=== PATIENT | female | born 1960 | race Caucasian/White ===

== ENCOUNTER 2018-09-16 10:13 | Emergency (ER) | payer SELFPAY ==
[2018-09-16] MEDS ORDERED: CYCLOBENZAPRINE HCL 10 MG TABLET PO ONE (11:19)
--- NOTE | 2018-09-16 12:25 | RADIOLOGY REPORT (SQ) ---
EXAM DESCRIPTION: L SPINE 2 VIEWS COMPLETED DATE/TIME: 09/16/2018 12:10 pm REASON FOR STUDY: fell out of wheelchair COMPARISON: None. NUMBER OF VIEWS: Two views. TECHNIQUE: AP and lateral radiographic images acquired of the lumbar spine. LIMITATIONS: None. FINDINGS: MINERALIZATION: Normal. SEGMENTATION: Normal. No transitional anatomy. ALIGNMENT: Normal. VERTEBRAE: Maintained height. No fracture or worrisome bone lesion. DISCS: Preserved height. No significant osteophytes or end plate irregularity. POSTERIOR ELEMENTS: Pedicles and facets are intact. No pars defect or posterior arch defects. HARDWARE: None in the spine. PARASPINAL SOFT TISSUES: Normal. PELVIS: Intact as visualized. No fractures or worrisome bone lesions. SI joints intact. OTHER: Prior cholecystectomy. IMPRESSION: 1. No acute osseous findings. TECHNICAL DOCUMENTATION: JOB ID: [id number] [employer]- All Rights Reserved Reading location - IP/workstation name: [email or web address]
--- NOTE | 2018-09-16 12:28 | RADIOLOGY REPORT (SQ) ---
EXAM DESCRIPTION: KNEE BILATERAL 1-2 VIEWS COMPLETED DATE/TIME: 09/16/2018 12:10 pm REASON FOR STUDY: fell out of wheelchair COMPARISON: None. NUMBER OF VIEWS: Four views. TECHNIQUE: AP and lateral standing bilateral knees. LIMITATIONS: None. FINDINGS: MINERALIZATION: Normal. RIGHT KNEE BONES: No acute fracture. Enthesiophyte at the quadriceps tendon insertion. MEDIAL COMPARTMENT: Small marginal osteophytes. No joint space narrowing. No chondrocalcinosis. LATERAL COMPARTMENT: No significant osteophytes. No joint space narrowing. No chondrocalcinosis. PATELLOFEMORAL COMPARTMENT: No significant osteophytes. No joint space narrowing. No chondrocalc inosis. LEFT KNEE BONES: No acute fracture. Enthesiophyte at the quadriceps tendon insertion. MEDIAL COMPARTMENT: No significant osteophytes. No joint space narrowing. No chondrocalcinosis. LATERAL COMPARTMENT: No significant osteophytes. No joint space narrowing. No chondrocalcinosis. PATELLOFEMORAL COMPARTMENT: No significant osteophytes. No joint space narrowing. No chondrocalc inosis. IMPRESSION: 1. No acute osseous findings. 2. Slight degenerative changes medial compartment of the right knee. TECHNICAL DOCUMENTATION: JOB ID: [id number] [employer]- All Rights Reserved Reading location - IP/workstation name: [email or web address]
--- NOTE | 2018-09-16 12:50 | ER Document Report ---
HPI - HPI Time Seen by Provider: 09/16/18 10:59 Pain Level: 5 Notes: This is a 57-year-old female presenting to the emergency department with complaints of bilateral knee pain and low back pain. Patient [place] she was being pushed in a wheelchair and the wheelchair evidently had a bump and the person pushing the wheelchair continued going and she states she fell forward out of the wheelchair onto her bilateral knees. She states that at the time she was checked out by EMS and she felt that her injuries were not very severe however through the night she has been unable to sleep and now has worsening pain to her knees as well as the low back in the right lower paraspinous area. Patient denies any bowel incontinence, denies any urinary retention and denies any saddle anesthesia. Past Medical History - General Information source: Patient - Social History Smoking Status: Current Every Day Smoker Frequency of alcohol use: None Drug Abuse: None Family History: Reviewed & Not Pertinent Patient has suicidal ideation: No Patient has homicidal ideation: No - Medical History Medical History: Negative Renal/ Medical History: Denies: Hx Peritoneal Dialysis Surgical Hx: Negative - Immunizations Immunizations up to date: Yes Vertical Provider Document - CONSTITUTIONAL Notes: PHYSICAL EXAMINATION: GENERAL: Well-appearing, well-nourished and in no acute distress. HEAD: Atraumatic, normocephalic. EYES: Pupils equal round extraocular movements intact, conjunctiva are normal. ENT: Nares patent NECK: Normal range of motion LUNGS: No respiratory distress Musculoskeletal: Normal range of motion, tenderness to palpation to right lumbar paraspinous area. No vertebral tenderness, step-off or deformity. Tenderness to palpation to anterior bilateral knees, no crepitus on palpation. NEUROLOGICAL: Normal speech. PSYCH: Normal mood, normal affect. SKIN: Warm, Dry, normal turgor, no rashes or lesions noted. - INFECTION CONTROL TRAVEL OUTSIDE OF THE [place] IN LAST 30 DAYS: No Course - Re-evaluation Re-evalutation: X-rays were obtained of patient's bilateral knees and lumbar spine as patient did have a fall injury. All x-rays are negative for any acute findings. Patient will be given pain medication and muscle relaxer and discharged home. Patient encouraged to follow-up with either primary care or orthopedics of her pain continues, she just moved to the area so several recommendations were made to her as far as who she can call to follow-up with. Patient and daughter at bedside both verbalized understanding and agreement with plan. - Vital Signs Vital signs: Temp Pulse Resp BP Pulse Ox 97.9 F 72 16 132/70 H 93 09/16/18 10:21 09/16/18 10:21 09/16/18 10:21 09/16/18 10:21 09/16/18 10:21 Discharge - Discharge Clinical Impression: Fall with injury Qualifiers: Encounter type: initial encounter Qualified Code(s): W19.XXXA - Unspecified fall, initial encounter Condition: Stable Disposition: HOME, SELF-CARE Additional Instructions: The x-rays taken today of your knees and your lumbar spine were negative for any obvious injury. My recommendation is to take ibuprofen 600 mg every 6 hours. Use the muscle relaxer as prescribed. If you continue to have pain in these areas over the next 5 to 7 days please consider following up with either primary care provider or orthopedics. I have given you a recommendation for both. Prescriptions: Cyclobenzaprine HCl [Flexeril 10 mg Tablet] 10 mg PO TIDP PRN #15 tab PRN Reason: Referrals: CHARLES ACEVEDO DO [ACTIVE STAFF] - Follow up as needed TYRELL KRUGER MD [ACTIVE STAFF] - Follow up as needed
[2018-09-16 12:53] VITALS: BP 105/86
== END 2018-09-16 12:55 | disposition home or self-care (01) ==
LOC: ER 10:13
DX: T14.90XA Injury, unspecified, initial encounter (principal); M25.561 Pain in right knee; M25.562 Pain in left knee; M54.5 Low back pain; V00.811A Fall from moving wheelchair (powered), initial encounter; Y93.89 Activity, other specified; Y92.520 Airport as the place of occurrence of the external cause; F17.200 Nicotine dependence, unspecified, uncomplicated
CPT/HCPCS: 72100; 99283

== ENCOUNTER → 2018-12-27 | Outpatient (CLI) | payer OTHER ==
[2018-12-27 09:30] LABS: ABSOLUTE BASOPHILS # (AUTO) 0.1 10^3/uL (0.0-0.2); ABSOLUTE EOSINOPHILS # (AUTO) 0.4 10^3/uL (0.0-0.6); ABSOLUTE LYMPHOCYTES (AUTO) 1.4 10^3/uL (0.5-4.7); ABSOLUTE MONOCYTES (AUTO) 0.5 10^3/uL (0.1-1.4); EOSINOPHILS % (AUTO) 8.3 % (0-6); HEMOGLOBIN 13.7 g/dL (12.0-15.5); LYMPHOCYTES % (AUTO) 26.6 % (13-45); MEAN CORPUSCULAR HGB CONC 34.2 g/dL (32.0-36.0); MEAN CORPUSCULAR VOLUME 91 fl (80-97); MONOCYTES % (AUTO) 8.4 % (3-13); PLATELET COUNT 216 10^3/uL (150-450); RED BLOOD COUNT 4.42 10^6/uL (3.72-5.28); RED CELL DISTRIBUTION WIDTH 13.2 % (11.5-14.0); SEGMENTED NEUTROPHILS % (AUTO) 55.7 % (42-78); TOTAL CELLS COUNTED % (AUTO) 100 %; WHITE BLOOD COUNT 5.4 10^3/uL (4.0-10.5)
[2018-12-27 09:52] LABS: ALBUMIN 3.8 g/dL (3.5-5.0); ALKALINE PHOSPHATASE 85 U/L (38-126); ANION GAP 6 (5-19); ASPARTATE AMINO TRANSFERASE 17 U/L (14-36); BILIRUBIN,DIRECT 0.2 mg/dL (0.0-0.4); BILIRUBIN,TOTAL 0.3 mg/dL (0.2-1.3); BLOOD UREA NITROGEN 11 mg/dL (7-20); CALCIUM 8.5 mg/dL (8.4-10.2); CARBON DIOXIDE 33 mmol/L (22-30); CHLORIDE 103 mmol/L (98-107); CHOLESTEROL 157.93 mg/dL (0-200); GLUCOSE 93 mg/dL (75-110); POTASSIUM 3.6 mmol/L (3.6-5.0); TOTAL PROTEIN 6.2 g/dL (6.3-8.2); TRIGLYCERIDES 92 mg/dL (<150)
[2018-12-27 10:03] LABS: DIRECT LDL 115 mg/dL (<100)
== END ==
LOC: CCC 08:37
DX: J44.9 Chronic obstructive pulmonary disease, unspecified (principal)
CPT/HCPCS: 36415; 80053; 80061; 83036; 84443; 84550; 85025

== ENCOUNTER 2019-01-18 22:09 | Emergency (ER) | payer OTHER ==
[2019-01-18] MEDS ORDERED: METHYLPREDNISOLONE INJ 125 MG/2 ML SDV IV ONE (22:45)
[2019-01-18] MEDS ORDERED: IPRATROPIUM/ALBUTEROL 0.5-2.5 MG/3 ML AMPUL NEB ONE ×2 (22:45→22:57)
[2019-01-18] MEDS ORDERED: ALBUTEROL SULFATE 0.083% NEB 2.5 MG/3 ML AMPUL NEB ONE ×2 (22:45→23:57)
--- NOTE | 2019-01-18 22:48 | ER Document Report ---
ED Medical Screen (RME) - General Chief Complaint: Shortness Of Breath Stated Complaint: SHORTNESS OF BREATH Time Seen by Provider: 01/18/19 22:44 Primary Care Provider: HARLEEN VALLE [Primary Care Provider] - Follow up as needed Mode of Arrival: Ambulatory Information source: Patient Notes: 58-year-old female presented to ED for severe shortness of breath. She has a history of COPD and asthma. She states she just got off of prednisone from a previous flare. She is alert oriented difficulty breathing audible inspiratory and expiratory wheezes. She is very short of breath and still smokes a pack a day. She lives with her daughter who moved here from [place] to [facility] to live with her. I have greeted and performed a rapid initial assessment of this patient. A comprehensive ED assessment and evaluation of the patient, analysis of test results and completion of medical decision making process will be conducted by an additional ED providers. TRAVEL OUTSIDE OF THE [place] IN LAST 30 DAYS: No - Related Data Allergies/Adverse Reactions: aspirin Allergy (Verified 09/16/18 10:19) erythromycin base [From Erythrocin] Allergy (Verified 09/16/18 10:19) Penicillins Allergy (Verified 09/16/18 10:19) Past Medical History Renal/ Medical History: Denies: Hx Peritoneal Dialysis - Immunizations Immunizations up to date: Yes Physical Exam - Vital signs Vitals: Temp Pulse Resp BP Pulse Ox 98.7 F 102 H 22 H 149/81 H 97 01/18/19 22:14 01/18/19 22:14 01/18/19 22:14 01/18/19 22:14 01/18/19 22:14 Course - Vital Signs Vital signs: Temp Pulse Resp BP Pulse Ox 98.7 F 102 H 22 H 149/81 H 97 01/18/19 22:14 01/18/19 22:14 01/18/19 22:14 01/18/19 22:14 01/18/19 22:14 Doctor's Discharge - Discharge Referrals: HARLEEN VALLE [Primary Care Provider] - Follow up as needed
[2019-01-18] MEDS: MAGNESIUM SULFATE/D5W 1 GM/100 ML RTUPB IV SCH ×2 (23:05→23:15)
[2019-01-18 23:13] LABS: ABSOLUTE EOSINOPHILS # (AUTO) 0.4 10^3/uL (0.0-0.6); ABSOLUTE MONOCYTES (AUTO) 0.7 10^3/uL (0.1-1.4); ABSOLUTE NEUT (AUTO) 5.9 10^3/uL (1.7-8.2); BASOPHILS % (AUTO) 0.3 % (0-2); EOSINOPHILS % (AUTO) 4.2 % (0-6); HEMATOCRIT 40.3 % (36.0-47.0); HEMOGLOBIN 13.9 g/dL (12.0-15.5); LYMPHOCYTES % (AUTO) 22.3 % (13-45); MEAN CORPUSCULAR HEMOGLOBIN 31.4 pg (27.0-33.4); MEAN CORPUSCULAR HGB CONC 34.4 g/dL (32.0-36.0); MEAN CORPUSCULAR VOLUME 91 fl (80-97); MONOCYTES % (AUTO) 8.1 % (3-13); PLATELET COUNT 186 10^3/uL (150-450); RED BLOOD COUNT 4.41 10^6/uL (3.72-5.28); RED CELL DISTRIBUTION WIDTH 13.3 % (11.5-14.0); SEGMENTED NEUTROPHILS % (AUTO) 65.1 % (42-78); TOTAL CELLS COUNTED % (AUTO) 100 %; WHITE BLOOD COUNT 9.1 10^3/uL (4.0-10.5)
[2019-01-18 23:17] LABS: VENOUS BLOOD BASE EXCESS 2.4 mmol/L; VENOUS BLOOD HCO3 28.5 mmol/L (20-32); VENOUS BLOOD PCO2 49.9 mmHg (35-63); VENOUS BLOOD PH 7.38 (7.30-7.42)
[2019-01-18 23:32] LABS: ALBUMIN 3.7 g/dL (3.5-5.0); ALKALINE PHOSPHATASE 86 U/L (38-126); ANION GAP 7 (5-19); ASPARTATE AMINO TRANSFERASE 18 U/L (14-36); BILIRUBIN,DIRECT 0.2 mg/dL (0.0-0.4); BILIRUBIN,TOTAL 0.3 mg/dL (0.2-1.3); BLOOD UREA NITROGEN 11 mg/dL (7-20); CALCIUM 8.7 mg/dL (8.4-10.2); CARBON DIOXIDE 29 mmol/L (22-30); CHLORIDE 104 mmol/L (98-107); GLUCOSE 121 mg/dL (75-110); POTASSIUM 3.5 mmol/L (3.6-5.0); TOTAL PROTEIN 6.2 g/dL (6.3-8.2)
--- NOTE | 2019-01-18 23:47 | RADIOLOGY REPORT (SQ) ---
CLINICAL HISTORY: #1 SYNCOPE COMPARISON: None. TECHNIQUE: XR CHEST 1 VIEW 01/18/2019 10:48 PM CDT FINDINGS: Cardiac silhouette is normal in size. Lungs are clear without consolidation, atelectasis, mass or edema. There is no pleural effusion. There is no pneumothorax. There are no acute osseous findings. IMPRESSION: Clear lungs.
[2019-01-18] MEDS ORDERED: RACEPINEPHRINE HCL 2.25% NEB 0.5 ML AMPUL NEB ONE ×2 (23:55→23:56)
[2019-01-19] MEDS ORDERED: ACETAMINOPHEN 325 MG TABLET PO ONE (00:43)
--- NOTE | 2019-01-19 01:09 | ER Document Report ---
ED General - General Chief Complaint: Shortness Of Breath Stated Complaint: SHORTNESS OF BREATH Time Seen by Provider: 01/18/19 22:44 Primary [facility] Provider: [facility] [Primary Care Provider] - Follow up in 3-5 days Mode of Arrival: Ambulatory Information source: Patient, [facility] Records Notes: 58-year female with asthma, COPD presents with complaint of shortness of breath, wheezing, cough that has been ongoing for 4 days with worsening today. Patient does continue to use tobacco. She denies any fever, chills, nausea, vomiting. TRAVEL OUTSIDE OF THE [place] IN LAST 30 DAYS: No - HPI Onset: Other Onset/Duration: Gradual, Persistent, Worse Quality of pain: No pain Severity: Moderate Associated symptoms: Productive cough, Shortness of breath. denies: Chest pain, Fever, Nausea, Vomiting, Sweating Exacerbated by: Movement, Coughing Relieved by: Denies Similar symptoms previously: Yes Recently seen / treated by doctor: No - Related Data Allergies/Adverse Reactions: aspirin Allergy (Verified 09/16/18 10:19) erythromycin base [From Erythrocin] Allergy (Verified 09/16/18 10:19) Penicillins Allergy (Verified 09/16/18 10:19) Past Medical History - General Information source: Patient - Social History Smoking Status: Current Every Day Smoker Cigarette use (# per day): Yes - 5 Smoking Education Provided: Yes - Smoking cessation counseling was provided for 4 minutes at the bedside Frequency of alcohol use: None Drug Abuse: None Lives with: Family Family History: Reviewed & Not Pertinent Patient has suicidal ideation: No Patient has homicidal ideation: No Pulmonary Medical History: Reports: Hx Asthma, Hx COPD Renal/ Medical History: Denies: Hx Peritoneal Dialysis - Immunizations Immunizations up to date: Yes Review of Systems - Review of Systems Notes: REVIEW OF SYSTEMS: CONSTITUTIONAL : Denies fever, chills, or sweats. Denies recent illness. Denies weight loss, recent hospitalizations. EENT: Denies visual changes, eye pain. Denies sore throat, oral lesions, difficulty swallowing. CARDIOVASCULAR: Denies chest pain. Denies palpitations. Denies lower extremity edema. RESPIRATORY: + cough. + shortness of breath, wheezing. GASTROINTESTINAL: Denies abdominal pain or distention. Denies nausea, vomiting, or diarrhea. Denies blood in vomitus, stools, or per rectum. Denies black, tarry stools. Denies constipation. GENITOURINARY: Denies difficulty urinating, painful urination, frequency, blood in urine, or vaginal discharge. MUSCULOSKELETAL: Denies back or neck pain or stiffness. Denies joint pain or swelling. SKIN: Denies rash, lesions or sores. HEMATOLOGIC : Denies easy bruising or bleeding. LYMPHATIC: Denies swollen glands. NEUROLOGICAL: Denies confusion or altered mental status. Denies loss of consciousness. Denies dizziness or lightheadedness. Denies headache. Denies weakness or paralysis. Denies problems difficulty with ambulation, slurred speech. Denies sensory loss, numbness, or tingling. Denies seizures. PSYCHIATRIC: Denies anxiety or stress. Denies depression, suicidal ideation, or homicidal ideation. Denies visual or auditory hallucinations. Physical Exam - Vital signs Vitals: Temp Pulse Resp BP Pulse Ox 98.7 F 102 H 22 H 149/81 H 97 01/18/19 22:14 01/18/19 22:14 01/18/19 22:14 01/18/19 22:14 01/18/19 22:14 - Notes Notes: PHYSICAL EXAMINATION: GENERAL: Well-appearing, well-nourished and in no acute distress. HEAD: Atraumatic, normocephalic. EYES: Pupils equal round and reactive to light, extraocular movements intact, conjunctiva are normal. ENT: Nares patent, oropharynx clear without exudates. Moist mucous membranes. NECK: Normal range of motion, supple without lymphadenopathy LUNGS: Tachypneic, increased work of breathing, expiratory wheezing throughout. HEART: Regular rate and rhythm without murmurs ABDOMEN: Soft, nontender, nondistended abdomen. No guarding, no rebound. No masses appreciated. Female : deferred Musculoskeletal: Normal range of motion, no pitting or edema. No cyanosis. NEUROLOGICAL: Cranial nerves grossly intact. Normal speech, normal gait. Normal sensory, motor exams PSYCH: Normal mood, normal affect. SKIN: Warm, Dry, normal turgor, no rashes or lesions noted. Course - Re-evaluation Re-evalutation: 01/19/19 01:07 Laboratory 01/18/19 01/18/19 01/18/19 22:55 22:55 22:55 WBC 9.1 RBC 4.41 Hgb 13.9 Hct 40.3 MCV 91 MCH 31.4 MCHC 34.4 RDW 13.3 Plt Count 186 Lymph % (Auto) 22.3 Runnels % (Auto) 8.1 Eos % (Auto) 4.2 Baso % (Auto) 0.3 Absolute Neuts (auto) 5.9 Absolute Lymphs (auto) 2.0 Absolute Monos (auto) 0.7 Absolute Eos (auto) 0.4 Absolute Basos (auto) 0.0 Seg Neutrophils % 65.1 VBG pH 7.38 VBG pCO2 49.9 VBG HCO3 28.5 VBG Base Excess 2.4 Sodium 140.3 Potassium 3.5 L Chloride 104 Carbon Dioxide 29 Anion Gap 7 BUN 11 Creatinine 0.70 Est GFR ( Amer) > 60 Est GFR (MDRD) Non-Af > 60 Glucose 121 H Calcium 8.7 Total Bilirubin 0.3 Direct Bilirubin 0.2 Neonat Total Bilirubin Not Reportable Neonat Direct Bilirubin Not Reportable Neonat Indirect Bili Not Reportable AST 18 ALT 14 Alkaline Phosphatase 86 Total Protein 6.2 L Albumin 3.7 Chest X-Ray 01/18/19 22:48 IMPRESSION: Clear lungs. Temp Pulse Resp BP Pulse Ox 98.7 F 98 15 98/67 L 98 01/18/19 22:14 01/18/19 23:27 01/18/19 23:59 01/18/19 23:01 01/18/19 23:59 ED Course History: 58-year-old female with continuous tobacco use, asthma, COPD presents with shortness of breath Patient evaluated. Vital signs were reviewed. Patient is thin normal limits Previous medical records and nursing notes reviewed. Patient does not appear toxic or dehydrated they are in no acuted distress Exam Findings: Diffuse expiratory wheezing Lab Findings: CBC is without leukocytosis or anemia. CMP shows no electrolte abnormalities and normal renal function. LFTs WNL. Venous blood gas within normal limits Patient Interventions/Monitor: DuoNeb, magnesium, BiPAP, racemic epinephrine, Valium, doxycycline. Smoking cessation counseling was provided for 4 minutes at the bedside Revaluation: Patient is resting comfortably. She reports improvement of her shortness of breath. Wheezing has improved. She was removed off of the BiPAP and maintain an O2 saturation of 96%. MDM: Patient presents with a mild exacerbation of their baseline COPD. Mild wheezing at time of presentation but vitals do not show significant hypoxemia or tachypnea. No retractions. Patient did clinically improve after receiving nebulizers, magnesium, racemic epi here in the emergency department. Chest x- ray without evidence of an acute pneumonia. Laboratories do not show acute kidney injury or significant leukocytosis. Patient able to ambulate without any respiratory distress. Based on patient's overall reassuring assessment, I believe they are stable for outpatient management with steroids and oral antibiotics. Patient has nebulizers at home. I do not suspect an acute alternative pathology at this time based on history and exam including acute pulmonary embolus, ACS, pneumothorax, or aortic dissection. At this time will discharge with return precautions and follow-up recommendations. Verbal discharge instructions given a the bedside and opportunity for questions given. Medication warnings reviewed. Patient is in agreement with this plan and has verbalized understanding of return precautions and the need for primary care follow-up in the next 24-72 hours. Patient was evaluated and treated as appropriate for the patient's presenting symptoms and complaint, with consideration of any critical or life threatening conditions that may be associated with their obtained history and exam as noted above. All results were discussed with patient and her daughter who is at the [facility]. Patient provided the opportunity to ask questions, and express concerns. Patient was educated on treatments based on their presumed diagnosis as noted above. At this time we will discharge the patient with return precautions and follow-up recommendations. Verbal discharge instructions given a the bedside. Medication warnings reviewed. Patient is in agreement with this plan and has verbalized understanding of return precautions. After careful consideration I feel that that patient can be safely discharged from the emergency department, they were advised to followup with a primary care physician in 2-3 days. Dictation on this chart was performed using voice recognition software and may result in unintended grammatical, spelling, syntax or errors. 01/19/19 01:08 01/19/19 01:39 01/19/19 01:41 - Vital Signs Vital signs: Temp Pulse Resp BP Pulse Ox 98.7 F 98 13 149/79 H 97 01/18/19 22:14 01/18/19 23:27 01/19/19 01:01 01/19/19 01:01 01/19/19 01:01 - Laboratory Result Diagrams: 01/18/19 22:55 01/18/19 22:55 Laboratory results interpreted by me: 01/18/19 22:55 Potassium 3.5 L Glucose 121 H Total Protein 6.2 L - Diagnostic Test Radiology reviewed: Image reviewed, Reports reviewed Discharge - Discharge Clinical Impression: COPD exacerbation Asthma Qualifiers: Asthma severity: unspecified severity Asthma persistence: intermittent Asthma complication type: unspecified Qualified Code(s): J45.20 - Mild intermittent asthma, uncomplicated Condition: Good Disposition: HOME, SELF-CARE Instructions: Chronic Obstructive Lung Disease ([facility]) Additional Instructions: You were seen for a COPD exacerbation. Your symptoms improved with treatment here in the emergency department. However, it is very important that you return to the emergency department immediately if you began to have worsening difficulty breathing that does not respond to your normal home nebulizers. You are also being sent home on a five-day course of steroids that you should start taking tomorrow. Please also take the antibiotics as prescribed. Please also follow closely with your primary care physician. You should eturn to emergency department if you develop fever greater than 101, persistent cough, persistent vomiting, pass out, or any other symptoms that are concerning to you. Prescriptions: Prednisone [Deltasone 20 mg Tablet] 3 tab PO DAILY 5 Days #15 tablet Doxycycline Hyclate 100 mg PO BID 7 Days #14 capsule Forms: Smoking Cessation Education, Elevated Blood Pressure Referrals: [facility] [Primary Care Provider] - Follow up in 3-5 days
[2019-01-19] MEDS ORDERED: ALBUTEROL SULFATE HFA (90 MCG/PUFF) 8 GM MDI (1 MDI/ER DISP) IH PRN (01:34)
[2019-01-19] MEDS ORDERED: ALBUTEROL SULFATE 0.083% NEB 2.5 MG/3 ML AMPUL NEB ONE (01:35)
[2019-01-19] MEDS ORDERED: DIAZEPAM INJ 10 MG/2 ML DISP.SYRIN IV ONE (01:35)
[2019-01-19] MEDS ORDERED: DOXYCYCLINE HYCLATE 100 MG TABLET PO ONE (01:35)
[2019-01-19 01:57] VITALS: BP 142/72
== END 2019-01-19 01:45 | disposition home or self-care (01) ==
LOC: ER 22:09
DX: J44.1 Chronic obstructive pulmonary disease with (acute) exacerbation (principal); J45.20 Mild intermittent asthma, uncomplicated; R06.02 Shortness of breath; R05 Cough; F17.210 Nicotine dependence, cigarettes, uncomplicated; Z71.6 Tobacco abuse counseling; Z88.8 Allergy status to other drugs, medicaments and biological substances; Z88.1 Allergy status to other antibiotic agents; Z88.0 Allergy status to penicillin
CPT/HCPCS: 36415; 85025; 80053; 82803; 71045; 94660; J3360; J2930; J3475; J3490 ×2; J7620

== ENCOUNTER 2019-04-19 20:37 | Emergency (ER) | payer OTHER ==
[2019-04-19] MEDS ORDERED: ACETAMINOPHEN 325 MG TABLET PO ONE (20:47)
--- NOTE | 2019-04-19 20:47 | ER Document Report ---
ED Medical Screen (RME) - General Chief Complaint: Flank Pain Stated Complaint: FLANK PAIN Time Seen by Provider: 04/19/19 20:45 Primary Care Provider: HARLEEN VALLE [Primary Care Provider] - Follow up as needed Mode of Arrival: Ambulatory Information source: Patient Notes: 58-year-old female presents to ED for complaint of right flank pain x3 days. She states she was nauseated earlier today after she coughed. She does have COPD. He denies a history of kidney stones. She states she has had kidney infections before. She denies any blood in her urine. She states she does not have a gallbladder so we do not believe to be concerned about that. I have greeted and performed a rapid initial assessment of this patient. A comprehensive ED assessment and evaluation of the patient, analysis of test results and completion of medical decision making process will be conducted by an additional ED providers. TRAVEL OUTSIDE OF THE [place] IN LAST 30 DAYS: No - Related Data Allergies/Adverse Reactions: aspirin Allergy (Verified 09/16/18 10:19) erythromycin base [From Erythrocin] Allergy (Verified 09/16/18 10:19) Penicillins Allergy (Verified 09/16/18 10:19) Past Medical History Pulmonary Medical History: Reports: Hx Asthma, Hx COPD Renal/ Medical History: Denies: Hx Peritoneal Dialysis Past Surgical History: Reports: Hx Section, Hx Hysterectomy, Hx Orthopedic Surgery - Immunizations Immunizations up to date: Yes Physical Exam - Vital signs Vitals: Temp Pulse Resp BP Pulse Ox 98.4 F 93 20 142/71 H 94 04/19/19 20:41 04/19/19 20:41 04/19/19 20:41 04/19/19 20:41 04/19/19 20:41 Course - Vital Signs Vital signs: Temp Pulse Resp BP Pulse Ox 98.4 F 93 20 142/71 H 94 04/19/19 20:41 04/19/19 20:41 04/19/19 20:41 04/19/19 20:41 04/19/19 20:41 Doctor's Discharge - Discharge Referrals: HARLEEN VALLE [Primary Care Provider] - Follow up as needed
[2019-04-19 21:14] LABS: ABSOLUTE BASOPHILS # (AUTO) 0.1 10^3/uL (0.0-0.2); ABSOLUTE EOSINOPHILS # (AUTO) 0.4 10^3/uL (0.0-0.6); ABSOLUTE LYMPHOCYTES (AUTO) 1.6 10^3/uL (0.5-4.7); ABSOLUTE MONOCYTES (AUTO) 0.7 10^3/uL (0.1-1.4); ABSOLUTE NEUT (AUTO) 4.1 10^3/uL (1.7-8.2); BASOPHILS % (AUTO) 1.2 % (0-2); EOSINOPHILS % (AUTO) 6.5 % (0-6); HEMATOCRIT 41.3 % (36.0-47.0); HEMOGLOBIN 14.3 g/dL (12.0-15.5); LYMPHOCYTES % (AUTO) 23.5 % (13-45); MEAN CORPUSCULAR HGB CONC 34.6 g/dL (32.0-36.0); MEAN CORPUSCULAR VOLUME 93 fl (80-97); MONOCYTES % (AUTO) 9.5 % (3-13); PLATELET COUNT 246 10^3/uL (150-450); RED BLOOD COUNT 4.46 10^6/uL (3.72-5.28); SEGMENTED NEUTROPHILS % (AUTO) 59.3 % (42-78); TOTAL CELLS COUNTED % (AUTO) 100 %; WHITE BLOOD COUNT 6.9 10^3/uL (4.0-10.5)
[2019-04-19 21:31] LABS: ALBUMIN 3.8 g/dL (3.5-5.0); ALKALINE PHOSPHATASE 79 U/L (38-126); ANION GAP 6 (5-19); ASPARTATE AMINO TRANSFERASE 17 U/L (14-36); BILIRUBIN,DIRECT 0.1 mg/dL (0.0-0.4); BILIRUBIN,TOTAL 0.3 mg/dL (0.2-1.3); BLOOD UREA NITROGEN 11 mg/dL (7-20); CALCIUM 8.9 mg/dL (8.4-10.2); CARBON DIOXIDE 34 mmol/L (22-30); CHLORIDE 103 mmol/L (98-107); GLUCOSE 97 mg/dL (75-110); POTASSIUM 3.7 mmol/L (3.6-5.0); TOTAL PROTEIN 6.5 g/dL (6.3-8.2)
[2019-04-19] MEDS ORDERED: OXYCODONE HCL IR 5 MG TABLET PO ONE (22:01)
--- NOTE | 2019-04-19 22:03 | ER Document Report ---
ED General - General Chief Complaint: Flank Pain Stated Complaint: FLANK PAIN Time Seen by Provider: 04/19/19 20:45 Primary Care Provider: [facility] [Primary Care Provider] - Follow up in 3-5 days Mode of Arrival: Ambulatory Notes: Patient is a 58-year-old female that comes to the emergency department for chief complaint of right flank pain. She states this started 3 days ago and has worsened, now she has a lot of discomfort from the pain. She denies injury, pain does wrap around her side towards the belly but she denies abdominal pain. She denies dysuria or hematuria. She denies focal numbness or weakness, pain radiating down her leg, incontinence. She denies history of kidney stones. She denies fever/chills, nausea, she states she had a coughing episode where she vomited a little bit but she denies vomiting otherwise. She states her cough is her standard cough with her COPD. She has had a hysterectomy, cholecystectomy. TRAVEL OUTSIDE OF THE [place] IN LAST 30 DAYS: No - Related Data Allergies/Adverse Reactions: aspirin Allergy (Verified 04/19/19 22:21) erythromycin base [From Erythrocin] Allergy (Verified 04/19/19 22:21) Penicillins Allergy (Verified 04/19/19 22:21) Home Medications: Zoila Neb. Agustin ANAND. Noam ANAND Past Medical History - General Information source: Patient - Social History Smoking Status: Current Every Day Smoker Smoking Education Provided: Yes - <3 min Frequency of alcohol use: None Drug Abuse: None Lives with: Family Family History: Reviewed & Not Pertinent Patient has suicidal ideation: No Patient has homicidal ideation: No Pulmonary Medical History: Reports: Hx Asthma, Hx COPD Renal/ Medical History: Denies: Hx Peritoneal Dialysis Past Surgical History: Reports: Hx Section, Hx Hysterectomy, Hx Orthopedic Surgery - Immunizations Immunizations up to date: Yes Review of Systems - Review of Systems Constitutional: No symptoms reported EENT: No symptoms reported Cardiovascular: No symptoms reported Respiratory: See HPI Gastrointestinal: No symptoms reported Genitourinary: See HPI Female Genitourinary: No symptoms reported Musculoskeletal: See HPI Skin: No symptoms reported Hematologic/Lymphatic: No symptoms reported Neurological/Psychological: No symptoms reported Physical Exam - Vital signs Vitals: Temp Pulse Resp BP Pulse Ox 98.4 F 93 20 142/71 H 94 04/19/19 20:41 04/19/19 20:41 04/19/19 20:41 04/19/19 20:41 04/19/19 20:41 - Notes Notes: GENERAL: Alert, interacts well. No acute distress. HEAD: Normocephalic, atraumatic. EYES: Pupils equal, round, and reactive to light. Extraocular movements intact. ENT: Oral mucosa moist, tongue midline. Oropharynx unremarkable. Airway patent. Mild sinus congestion. LUNGS: Scattered expiratory wheezes, no rales or rhonchi. No respiratory distress. Occasional congested cough. HEART: Regular rate and rhythm. No murmur ABDOMEN: Soft, non-tender. Non-distended. Bowel sounds present in all 4 quadrants. GENITOURINARY: Deferred EXTREMITIES: Moves all 4 extremities spontaneously. No edema, normal radial and dorsalis pedis pulses bilaterally. No cyanosis. BACK: There is pain with palpation over the right CVA and right paralumbar areas. Pain with range of motion of these areas as well. No cervical, thoraci c, lumbar midline tenderness. No saddle anesthesia, normal distal neurovascular exam. Moves all extremities in full range of motion. NEUROLOGICAL: Alert and oriented x3. Normal speech. Cranial nerves II through XII grossly intact. PSYCH: Normal affect, normal mood. SKIN: Warm, dry, normal turgor. No rashes or lesions noted. Course - Re-evaluation Re-evalutation: On my evaluation patient has some expiratory wheezes, however she is not tachypneic. She does have frequent coughing episodes. She has minimal congestion as well. She has pain with palpation over the right mid to lower back, possibly muscular, possibly kidney. Abdomen is nontender. Oxygen saturations 94%. Patient's main complaint is her flank pain. Ultrasound negative, no hydronephrosis, urinalysis unremarkable, CBC, chemistry nonspecific. Chest x-ray clear. Overall evaluation is most consistent with bronchitis, COPD exacerbation, and muscle spasm from the coughing. I did talk at length about the nodule on the chest x-ray given patient's smoking habit I emphasized how important it was to have this followed up, patient already has a CAT scan follow-up scheduled and a pulmonology consult planned. Daughter is very supportive and has arranged this for her. Patient will be treated for muscle spasm, COPD exacerbation, provided with medications for this. Patient significantly improved after treatments, has no respiratory distress, no current complaints other than pain with movement of the back. Discussed follow-up and return precautions. They state appreciation and agreement. Stable time of discharge. - Vital Signs Vital signs: Temp Pulse Resp BP Pulse Ox 98.2 F 92 19 142/74 H 91 L 04/20/19 00:32 04/20/19 00:32 04/20/19 00:32 04/20/19 00:32 04/20/19 00:32 - Laboratory Result Diagrams: 04/19/19 20:54 04/19/19 20:54 Laboratory results interpreted by me: 04/19/19 04/19/19 04/19/19 20:54 20:54 21:50 Eos % (Auto) 6.5 H Carbon Dioxide 34 H Urine Protein 30 H Urine Urobilinogen 2.0 H Discharge - Discharge Clinical Impression: Wheezing, Cough Lower back pain Qualifiers: Chronicity: acute Back pain laterality: right Sciatica presence: without sciatica Qualified Code(s): M54.5 - Low back pain Condition: Stable Disposition: HOME, SELF-CARE Additional Instructions: Your evaluation is most consistent with bronchitis, COPD exacerbation, and a muscle spasm in your back. Take prednisone as prescribed, albuterol as prescribed, and the muscle relaxant as prescribed. Apply heat to your lower back. Rest. Stay hydrated. Follow close with primary care for additional management, it is important that you follow-up with your plan to have a CAT scan performed, you have what appears to be a small nodule in your lung which needs to be assessed and managed. Return if you worsen including fever, worsening difficulty breathing, vomiting, or any other concerning or worsening symptoms. Prescriptions: Prednisone [Deltasone 20 mg Tablet] 3 tab PO DAILY 5 Days #15 tablet Cyclobenzaprine HCl [Flexeril 5 mg Tablet] 1 - 2 tab PO TID PRN #20 tablet PRN Reason: Albuterol Sulfate [Proair HFA Inhalation Aerosol 8.5 gm MDI] 2 puff IH Q4H PRN #1 mdi PRN Reason: Referrals: [facility] [Primary Care Provider] - Follow up in 3-5 days
[2019-04-19 22:10] LABS: APPEARANCE,URINE CLOUDY; BILIRUBIN,URINE NEGATIVE (NEGATIVE); COLOR,URINE YELLOW; GLUCOSE, URINE NEGATIVE (NEGATIVE); KETONES,URINE NEGATIVE (NEGATIVE); PROTEIN,URINE 30 mg/dL (NEGATIVE); URINE SPECIFIC GRAVITY 1.023
--- NOTE | 2019-04-19 22:12 | RADIOLOGY REPORT (SQ) ---
EXAM DESCRIPTION: US RETROPERITONEUM COMPLETED DATE/TME: 04/19/2019 20:47 CLINICAL HISTORY: 58 years, Female, right flank pain COMPARISON: None. TECHNIQUE: Axial 2-D grayscale images of the retroperitoneum were acquired. Doppler was utilized. LIMITATIONS: None. FINDINGS: Right kidney measures 10.6 x 3.5 x 5.5 cm in size. Left kidney measures 11.3 x 4.8 x 4.7 cm in size. Both kidneys appear normal in echogenicity. There is no evidence of hydronephrosis. The urinary bladder measures 3.1 x 1.5 x 6.0 cm in size for a total volume of 15 mL. The abdominal aorta and IVC were not well visualized. IMPRESSION: No sonographic abnormality. copyright 2010 [employer]- All Rights Reserved
[2019-04-19] MEDS ORDERED: METHYLPREDNISOLONE INJ 125 MG/2 ML SDV IM ONE (22:25)
[2019-04-19] MEDS ORDERED: IPRATROPIUM/ALBUTEROL 0.5-2.5 MG/3 ML AMPUL NEB ONE ×2 (22:25→23:46)
--- NOTE | 2019-04-19 23:22 | RADIOLOGY REPORT (SQ) ---
EXAM DESCRIPTION: XR CHEST 2 VIEWS COMPLETED DATE/TME: 04/19/2019 22:25 CLINICAL HISTORY: 58 years, Female, worsening cough COMPARISON: Prior study from 01/18/2019 NUMBER OF VIEWS: Two TECHNIQUE: Frontal and lateral radiographs of the chest were obtained LIMITATIONS: None. FINDINGS: Cardiac and mediastinal contours are stable. Suspect focal nodular opacity projects over the left posterior sixth rib. Lungs are otherwise clear. No pleural effusion or pneumothorax. IMPRESSION: No acute disease. Suspected focal nodular opacity projecting over the left posterior sixth rib. Correlate with nonemergent CT of the chest as this could indicate a pulmonary nodule. copyright 2010 [employer]- All Rights Reserved
[2019-04-20 00:32] VITALS: BP 142/74
[2019-04-20] MEDS ORDERED: ALBUTEROL SULFATE HFA (90 MCG/PUFF) 8 GM MDI (1 MDI/ER DISP) IH ONE (00:36)
[2019-04-20] MEDS ORDERED: CYCLOBENZAPRINE HCL 10 MG TABLET PO ONE (00:37)
== END 2019-04-20 00:53 | disposition home or self-care (01) ==
LOC: ER 20:37
DX: M54.5 Low back pain (principal); R06.2 Wheezing; R05 Cough; R10.9 Unspecified abdominal pain; J44.9 Chronic obstructive pulmonary disease, unspecified; F17.200 Nicotine dependence, unspecified, uncomplicated
CPT/HCPCS: 36415; 85025; 80053; 81001; 71046; 76770; J7620; J2930; J3490; 94640; 96372; 99284

== ENCOUNTER 2019-07-15 10:53 | Inpatient (IN) | payer OTHER ==
[2019-07-15] MEDS ORDERED: IPRATROPIUM/ALBUTEROL 0.5-2.5 MG/3 ML AMPUL NEB ONE (11:01)
[2019-07-15] MEDS ORDERED: METHYLPREDNISOLONE INJ 125 MG/2 ML SDV IM ONE (11:01)
--- NOTE | 2019-07-15 11:03 | ER Document Report ---
ED Medical Screen (RME) - General Chief Complaint: Fever Stated Complaint: FEVER,COUGH,CONGESTION Time Seen by Provider: 07/15/19 11:01 Primary Care Provider: HARLEEN VALLE [Primary Care Provider] - Follow up as needed Notes: 58-year-old female with history of COPD and asthma presents with difficulty breathing, fever, nonproductive cough for the past couple days. Wheezing noted without auscultation. Pt able to speak 2-3 word sentences. Pt has been using neb treatments at home without relief. Decreased breath sounds throughout. Dry cough noted. I have greeted and performed a rapid initial assessment of this patient. A comprehensive ED assessment and evaluation of the patient, analysis of test results and completion of the medical decision making process with be conducted by additional ED providers. TRAVEL OUTSIDE OF THE [place] IN LAST 30 DAYS: No - Related Data Allergies/Adverse Reactions: aspirin Allergy (Verified 04/19/19 22:21) erythromycin base [From Erythrocin] Allergy (Verified 04/19/19 22:21) Penicillins Allergy (Verified 04/19/19 22:21) Past Medical History Pulmonary Medical History: Reports: Hx Asthma, Hx COPD Renal/ Medical History: Denies: Hx Peritoneal Dialysis Past Surgical History: Reports: Hx Section, Hx Hysterectomy, Hx Orthopedic Surgery - Immunizations Immunizations up to date: Yes Doctor's Discharge - Discharge Referrals: HARLEEN VALLE [Primary Care Provider] - Follow up as needed
[2019-07-15 11:22] LABS: ABSOLUTE BASOPHILS # (AUTO) 0.1 10^3/uL (0.0-0.2); ABSOLUTE EOSINOPHILS # (AUTO) 0.1 10^3/uL (0.0-0.6); ABSOLUTE LYMPHOCYTES (AUTO) 0.6 10^3/uL (0.5-4.7); ABSOLUTE MONOCYTES (AUTO) 0.7 10^3/uL (0.1-1.4); ABSOLUTE NEUT (AUTO) 3.1 10^3/uL (1.7-8.2); BASOPHILS % (AUTO) 1.2 % (0-2); EOSINOPHILS % (AUTO) 2.5 % (0-6); HEMATOCRIT 42.2 % (36.0-47.0); HEMOGLOBIN 14.6 g/dL (12.0-15.5); LYMPHOCYTES % (AUTO) 13.5 % (13-45); MEAN CORPUSCULAR HEMOGLOBIN 31.1 pg (27.0-33.4); MEAN CORPUSCULAR HGB CONC 34.6 g/dL (32.0-36.0); MEAN CORPUSCULAR VOLUME 90 fl (80-97); MONOCYTES % (AUTO) 15.4 % (3-13); PLATELET COUNT 199 10^3/uL (150-450); RED BLOOD COUNT 4.69 10^6/uL (3.72-5.28); RED CELL DISTRIBUTION WIDTH 13.5 % (11.5-14.0); SEGMENTED NEUTROPHILS % (AUTO) 67.4 % (42-78); TOTAL CELLS COUNTED % (AUTO) 100 %; WHITE BLOOD COUNT 4.7 10^3/uL (4.0-10.5)
[2019-07-15 11:39] LABS: ALBUMIN 4.1 g/dL (3.5-5.0); ALKALINE PHOSPHATASE 95 U/L (38-126); ANION GAP 6 (5-19); ASPARTATE AMINO TRANSFERASE 21 U/L (14-36); BILIRUBIN,TOTAL 0.3 mg/dL (0.2-1.3); BLOOD UREA NITROGEN 13 mg/dL (7-20); CALCIUM 8.7 mg/dL (8.4-10.2); CARBON DIOXIDE 30 mmol/L (22-30); CHLORIDE 104 mmol/L (98-107); GLUCOSE 98 mg/dL (75-110); POTASSIUM 4.3 mmol/L (3.6-5.0); TOTAL PROTEIN 6.7 g/dL (6.3-8.2)
[2019-07-15] MEDS ORDERED: MAGNESIUM SULFATE/D5W 1 GM/100 ML RTUPB IV ONE ×2 (12:16)
[2019-07-15] MEDS ORDERED: ALBUTEROL SULFATE 0.083% NEB 2.5 MG/3 ML AMPUL NEB ONE (12:17)
--- NOTE | 2019-07-15 12:21 | ER Document Report ---
ED General - General Chief Complaint: Difficulty breathng Stated Complaint: FEVER,COUGH,CONGESTION Time Seen by Provider: 07/15/19 11:01 Primary Care Provider: [facility] [Primary Care Provider] - Follow up as needed TRAVEL OUTSIDE OF THE [place] IN LAST 30 DAYS: No - HPI Notes: Patient is a 58-year-old female with history of COPD and asthma who presents complaining of fever, body ache, wheezing, nonproductive cough that began 2 days ago. She is able to eat and drink without difficulty. She is urinating normally and having normal bowel movements. Patient has had flareups like this in the past with her COPD and asthma. She has been on BiPAP before. Denies any headache, neck pain, sore throat, chest pain, palpitations, syncope, abdominal pain, nausea/vomiting/diarrhea, urinary retention, dysuria, hematuria, or rash. - Related Data Allergies/Adverse Reactions: aspirin Allergy (Verified 07/15/19 11:15) erythromycin base [From Erythrocin] Allergy (Verified 07/15/19 11:15) Penicillins Allergy (Verified 07/15/19 11:15) Past Medical History - Social History Smoking Status: Unknown if Ever Smoked Family History: Reviewed & Not Pertinent Patient has suicidal ideation: No Patient has homicidal ideation: No Pulmonary Medical History: Reports: Hx Asthma, Hx COPD Renal/ Medical History: Denies: Hx Peritoneal Dialysis Past Surgical History: Reports: Hx Section, Hx Hysterectomy, Hx Orthopedic Surgery - Immunizations Immunizations up to date: Yes Review of Systems - Review of Systems -: Yes All other systems reviewed and negative Physical Exam - Vital signs Vitals: Temp Pulse Resp BP Pulse Ox 99.8 F 107 H 18 131/76 H 92 07/15/19 11:14 07/15/19 11:14 07/15/19 11:14 07/15/19 11:14 07/15/19 11:14 - Notes Notes: PHYSICAL EXAMINATION: GENERAL: Well-appearing, well-nourished and in no acute distress. HEAD: Atraumatic, normocephalic. EYES: Pupils equal round and reactive to light, extraocular movements intact, sclera anicteric, conjunctiva are normal. ENT: Nares patent and without discharge. oropharynx clear without exudates. No tonsilar hypertrophy or erythema. Moist mucous membranes. NECK: Normal range of motion, supple without lymphadenopathy LUNGS: Wheezing throughout. No retractions. HEART: Regular rate and rhythm without murmurs, rubs, gallops. ABDOMEN: Soft, nontender, nondistended abdomen. No guarding, no rebound. Normal bowel sounds present. No CVA tenderness bilaterally. Musculoskeletal: FROM to passive/active. Strength 5+/5. Morgan neg. No asymmetry to LE's. Extremities: No cyanosis, clubbing, or edema b/l. Peripheral pulses 2+. Capillary refill less than 3 seconds. NEUROLOGICAL: Normal speech, normal gait. PSYCH: Normal mood, normal affect. SKIN: Warm, Dry, normal turgor, no rashes or lesions noted. Course - Re-evaluation Re-evalutation: 07/15/19 12:20 Patient is an afebrile, well-hydrated, 58-year-old female who presents with an acute URI currently and probable COPD/asthma exacerbation. She is currently oxygenating at 90 to 91% on room air after having 3 DuoNeb treatments and Solu- Medrol IM. Patient does continue have wheezing throughout. I will give her another albuterol treatment and magnesium through her IV. Chest x-ray is currently pending. If she does not improve with this we will try BiPAP. I nfluenza test has been ordered. 07/15/19 12:54 Pt is currently receiving her Magnesium IV. Pt has finished 4 breathing treatments and been given solumedrol. Her lungs still sound very tight and wheezy. Bipap ordered. Pt still oxygenating even throughout breathing treatment 88-90% now. Once stabilized on Bipap we will consider admission. 07/15/19 13:20 Pt is doing well on Bipap and O2 is now 98%. We will monitor for a little while and see how she oxygenates and recheck lung sounds off of bipap prior to considering admission. 07/15/19 14:48 Pt continued to oxygenate around 90% on RA after bipap was stopped. Pt c/o continued sob and wheezing. Lungs still have wheezing b/l, mostly on expiration, and somewhat improved overall, but still sounds tight. Dr. Martin accepted pt for admit to [facility]. Bipap restarted. Pt in agreement. - Vital Signs Vital signs: Temp Pulse Resp BP Pulse Ox 99.8 F 107 H 11 L 120/61 96 07/15/19 11:14 07/15/19 11:14 07/15/19 12:54 07/15/19 13:31 07/15/19 13:31 - Laboratory Result Diagrams: 07/15/19 11:06 07/15/19 11:06 Laboratory results interpreted by me: 07/15/19 11:06 Rooks % (Auto) 15.4 H Discharge - Discharge Clinical Impression: COPD exacerbation Condition: Stable Disposition: ADMITTED INPATIENT Admitting Provider: Mario (Hospitalist) Unit Admitted: [facility] Referrals: [facility] [Primary Care Provider] - Follow up as needed
--- NOTE | 2019-07-15 12:27 | RADIOLOGY REPORT (SQ) ---
EXAM DESCRIPTION: CHEST 2 VIEWS COMPLETED DATE/TIME: 07/15/2019 12:17 pm REASON FOR STUDY: cough, fever COMPARISON: 04/19/2019. EXAM PARAMETERS: NUMBER OF VIEWS: two views TECHNIQUE: Digital Frontal and Lateral radiographic views of the chest acquired. RADIATION DOSE: NA LIMITATIONS: none FINDINGS: LUNGS AND PLEURA: No opacities, masses or pneumothorax. No pleural effusion. MEDIASTINUM AND HILAR STRUCTURES: No masses or contour abnormalities. HEART AND VASCULAR STRUCTURES: Heart normal size. No evidence for failure. BONES: No acute findings. HARDWARE: None in the chest. OTHER: No other significant finding. IMPRESSION: NO ACUTE RADIOGRAPHIC FINDING IN THE CHEST. TECHNICAL DOCUMENTATION: JOB ID: [id number] 2010 [employer]- All Rights Reserved Reading location - IP/workstation name: [email or web address]
[2019-07-15 13:09] LABS: A TYPE INFLUENZA AG NEGATIVE (NEGATIVE)
[2019-07-15 13:10] LABS: B INFLUENZA AG NEGATIVE (NEGATIVE)
[2019-07-15 15:55] LABS: VENOUS BLOOD BASE EXCESS 1.5 mmol/L; VENOUS BLOOD HCO3 26.6 mmol/L (20-32); VENOUS BLOOD PCO2 43.8 mmHg (35-63); VENOUS BLOOD PH 7.4 (7.30-7.42)
[2019-07-15] MEDS ORDERED: ONDANSETRON 4 MG TAB.RAPDIS PO PRN (16:02)
[2019-07-15] MEDS ORDERED: MAGNESIUM HYDROXIDE SUSP 30 ML UDCUP PO PRN (16:02)
[2019-07-15] MEDS ORDERED: ZOLPIDEM TARTRATE 5 MG TABLET PO PRN (16:02)
--- NOTE | 2019-07-15 16:22 | PDOC H&P ---
History of Present Illness Admission Date/PCP: 07/15/19 15:07 [facility] Patient complains of: Progressive shortness of breath, generalized body aches and pain, nonproductive cough, for about 2 days History of Present Illness: RYAN PLASCENCIA is a 58 year old female Patient presents to the emergency room with complaint of difficulty breathing and shortness of breath accompanied by fever, body aches, and a dry nonproductive cough for about 2 days. She gives a history of a COPD and asthma. She continues to smoke. She denies any prior history of intubation. She was treated in the emergency room and attempts made to discharge her home however she remained bronchospastic and so she has been admitted for further evaluation and management There is no history of travel or exposure to any viral illness Past Medical History Pulmonary Medical History: Reports: Asthma, Chronic Obstructive Pulmonary Disease (COPD) Malignancy Medical History: Reports: None GI Medical History: Reports: None Past Surgical History Past Surgical History: Reports: Section, Hysterectomy, Orthopedic Surgery Social History Information Source: Patient Lives with: Family Smoking Status: Current Every Day Smoker Cigarettes Packs Per Day: 1 Frequency of Alcohol Use: Occasional Drugs: None - Advance Directive Resuscitation Status: Full Code Family History Family History: Reviewed & Not Pertinent Parental Family History Reviewed: Yes Children Family History Reviewed: Yes Sibling(s) Family History Reviewed.: Yes Medication/Allergy Home Medications: Albuterol Sulfate [Proventil Hfa] 2 puff IH PRN PRN 04/19/19 Ipratropium/Albuterol Sulfate [Duoneb 3 ml Ampul] 3 ml NEB RTQ4 04/19/19 Allergies/Adverse Reactions: aspirin Allergy (Verified 07/15/19 11:15) erythromycin base [From Erythrocin] Allergy (Verified 07/15/19 11:15) Penicillins Allergy (Verified 07/15/19 11:15) Review of Systems Constitutional: ABSENT: chills, fever(s), headache(s), weight gain, weight loss Eyes: ABSENT: visual disturbances Ears: ABSENT: hearing changes Cardiovascular: ABSENT: chest pain, dyspnea on exertion, edema, orthropnea, pa lpitations Respiratory: PRESENT: cough. ABSENT: hemoptysis Gastrointestinal: ABSENT: abdominal pain, constipation, diarrhea, hematemesis, hematochezia, nausea, vomiting Genitourinary: ABSENT: dysuria, hematuria Musculoskeletal: ABSENT: joint swelling Integumentary: ABSENT: rash, wounds Neurological: ABSENT: abnormal gait, abnormal speech, confusion, dizziness, focal weakness, syncope Psychiatric: ABSENT: anxiety, depression, homidical ideation, suicidal ideation Endocrine: ABSENT: cold intolerance, heat intolerance, polydipsia, polyuria Hematologic/Lymphatic: ABSENT: easy bleeding, easy bruising Physical Exam Vital Signs: Temp Pulse Resp BP Pulse Ox 99.8 F 107 H 11 L 120/61 96 07/15/19 11:14 07/15/19 11:14 07/15/19 12:54 07/15/19 13:31 07/15/19 13:31 Intake & Output 07/14/19 07/15/19 07/16/19 06:59 06:59 06:59 Intake Total 200 Balance 200 Weight 92.2 kg General appearance: PRESENT: no acute distress, well-developed, well-nourished Head exam: PRESENT: atraumatic, normocephalic Eye exam: PRESENT: conjunctiva pink, EOMI, PERRLA. ABSENT: scleral icterus Ear exam: PRESENT: normal external ear exam Mouth exam: PRESENT: moist, tongue midline Neck exam: ABSENT: carotid bruit, JVD, lymphadenopathy, thyromegaly Respiratory exam: PRESENT: rhonchi, unlabored, wheezes - Bilateral wheezing throughout both lung mcclure Cardiovascular exam: PRESENT: RRR. ABSENT: diastolic murmur, rubs, systolic murmur Pulses: PRESENT: normal dorsalis pedis pul Vascular exam: PRESENT: normal capillary refill GI/Abdominal exam: PRESENT: normal bowel sounds, soft. ABSENT: distended, guarding, mass, organolmegaly, rebound, tenderness Rectal exam: PRESENT: deferred Extremities exam: PRESENT: full ROM. ABSENT: calf tenderness, clubbing, pedal edema Neurological exam: PRESENT: alert, awake, oriented to person, oriented to place, oriented to time, oriented to situation, CN II-XII grossly intact. ABSENT: motor sensory deficit Psychiatric exam: PRESENT: appropriate affect, normal mood. ABSENT: homicidal ideation, suicidal ideation Skin exam: PRESENT: dry, intact, warm. ABSENT: cyanosis, rash Results Laboratory Results: 07/15/19 11:06 07/15/19 11:06 07/15/19 07/15/19 07/15/19 11:06 11:06 15:36 WBC 4.7 RBC 4.69 Hgb 14.6 Hct 42.2 MCV 90 MCH 31.1 MCHC 34.6 RDW 13.5 Plt Count 199 Seg Neutrophils % 67.4 VBG pH 7.40 VBG pCO2 43.8 VBG HCO3 26.6 VBG Base Excess 1.5 Sodium 139.5 Potassium 4.3 Chloride 104 Carbon Dioxide 30 Anion Gap 6 BUN 13 Creatinine 0.92 Est GFR ( Amer) > 60 Glucose 98 Calcium 8.7 Total Bilirubin 0.3 AST 21 Alkaline Phosphatase 95 Total Protein 6.7 Albumin 4.1 Impressions: Chest X-Ray 07/15/19 11:01 IMPRESSION: NO ACUTE RADIOGRAPHIC FINDING IN THE CHEST. Assessment and Plan - Diagnosis (1) Status asthmaticus with COPD (chronic obstructive pulmonary disease) Is this a current diagnosis for this admission?: Yes (2) Acute hypoxemic respiratory failure Is this a current diagnosis for this admission?: Yes Plan: Blood gas actually seems acceptable however she was hypoxic initially on presentation. Be placed on BiPAP along with oxygen support. - Plan Summary Summary: Patient remains bronchospastic despite receiving steroids, bronchodilators and magnesium in the emergency room. Patient will be admitted for further management. She will be monitored with further testing as indicated. Imaging studies revealed no acute infection and laboratory data is fairly normal - Time Time Spent with patient: 25-34 minutes Smoking Cessation Education: 3 to 10 minutes Medications reviewed and adjusted accordingly: Yes Anticipated discharge: Home Within: within 72 hours - Inpatient Certification Based on my medical assessment, after consideration of the patient's comorbidities, presenting symptoms, or acuity I expect that the services needed warrant INPATIENT care.: Yes Medical Necessity: Need Close Monitoring Due to Risk of Patient Decompensation, Risk of Complication if Not Cared For in Hospital
[2019-07-15] MEDS: IPRATROPIUM/ALBUTEROL 0.5-2.5 MG/3 ML AMPUL NEB PRN (17:36)
[2019-07-15] MEDS: METHYLPREDNISOLONE INJ 40 MG/1 ML SDV IV SCH ×2 (17:40→23:25)
[2019-07-15] MEDS ORDERED: INFLUENZA QUAD (6MOS+) 2019-20 VAC 0.5 ML SYR IM ONE (18:47)
[2019-07-15] MEDS: NICOTINE 14 MG/24 HR PATCH.TD24 TD SCH (19:36)
[2019-07-15] MEDS: ALPRAZOLAM 0.5 MG TABLET PO PRN (19:37)
[2019-07-15] MEDS: FAMOTIDINE 20 MG TABLET PO SCH (19:37)
[2019-07-15] MEDS: ALBUTEROL SULFATE 0.083% NEB 2.5 MG/3 ML AMPUL NEB SCH (20:21)
[2019-07-16] MEDS: ALBUTEROL SULFATE 0.083% NEB 2.5 MG/3 ML AMPUL NEB SCH ×7 (00:16→23:29)
[2019-07-16] MEDS: METHYLPREDNISOLONE INJ 40 MG/1 ML SDV IV SCH ×3 (05:22→21:16)
[2019-07-16] MEDS: NICOTINE 14 MG/24 HR PATCH.TD24 TD SCH (09:43)
[2019-07-16] MEDS: ALPRAZOLAM 0.5 MG TABLET PO PRN ×2 (09:43→21:16)
[2019-07-16] MEDS: DOCUSATE SODIUM 100 MG CAPSULE PO SCH (09:43)
[2019-07-16] MEDS: FAMOTIDINE 20 MG TABLET PO SCH ×2 (09:43→17:24)
[2019-07-16] MEDS: AZITHROMYCIN 250 MG TABLET PO SCH ×2 (09:43→09:50)
[2019-07-16] MEDS: ENOXAPARIN SODIUM INJ 40 MG/0.4 ML DISP.SYRIN SUBCUT SCH (09:43)
--- NOTE | 2019-07-16 10:40 | RADIOLOGY REPORT (SQ) ---
EXAM DESCRIPTION: CTA CHEST COMPLETED DATE/TIME: 07/16/2019 10:14 am REASON FOR STUDY: Tachypnea, bronchospasm COMPARISON: PA and lateral views of the chest from 07/15/2019. TECHNIQUE: CT scan of the chest performed using helical scanning technique with dynamic intravenous contrast injection. Images reviewed with lung, soft tissue and bone windows. Reconstructed coronal and sagittal MPR images reviewed. Additional 3 dimensional post-processing performed to develop Maximal Intensity Projection images ([place] P). All images stored on PACS. All CT scanners at this facility use dose modulation, iterative reconstruction, and/or weight based d osing when appropriate to reduce radiation dose to as low as reasonably achievable (ALARA). [facility]: Dose Right [facility]: CareDose [facility]: Dose Right [facility]: Teradose 4D [facility]: [employer] [facility] CONTRAST TYPE AND DOSE: Contrast/concentration: Isovue 350.00 mg/ml; Total Contrast Delivered: 61.0 ml; Total Saline Delivered: 80.0 ml Contrast bolus optimized for the pulmonary arteries. RENAL FUNCTION: GFR > 60. RADIATION DOSE: CT Rad equipment meets quality standard of care and radiation dose reduction techniq ues were employed. CTDIvol: 5.6 - 12.1 mGy. DLP: 458 mGy-cm. LIMITATIONS: None. FINDINGS: LUNGS AND PLEURA: There is mild centrilobular emphysema and bronchial wall thickening ; th ere is no associated bronchiectasis or segmental mucus plugging. There is a parenchymal band in the right upper lobe (image 27 of series 4) There are several noncalcified pulmonary nodules that range in size from 3 mm to 6 mm ; these include the 4 mm nodule in the left upper lobe (image 14 of series 4), the 3 mm nodule in the left upper lob e (image 20 of series 4), the 4 mm nodule in the lingula (image 37 of series 4), 6 mm nodule in the l eft lower lobe (image 39 of series 4), the 4 mm nodule in the right lower lobe (image 41 of series 4) , and the 6 mm nodule in the right lower lobe (43 of series 4). There is no acute consolidation, ground-glass opacification, pleural effusion or pneumothorax. AORTA AND GREAT VESSELS: There is a variant 2 vessel arch with a common origin of the brachiocephalic and left common carotid arteries. There is no thoracic aortic dissection. HEART: There is no pericardial effusion. The reflux of contrast into the IVC and hepatic veins is ty pical in the setting of right-sided cardiac dysfunction. There is no pericardial effusion. PULMONARY ARTERIES: There is no central or segmental pulmonary embolus. Evaluation of the subsegment al branches of the pulmonary arteries is limited due to respiratory motion. HILAR AND MEDIASTINAL STRUCTURES: No adenopathy or mass. HARDWARE: None in the chest. UPPER ABDOMEN: No acute findings. THYROID AND OTHER SOFT TISSUES: No adenopathy or mass. BONES: No acute findings. 3D MIPS: Confirm above findings. OTHER: No other finding. IMPRESSION: 1. No central or segmental pulmonary embolus. 2. Mild emphysema and bronchial wall thickening without a superimposed acute cardiopulmonary process . 2. Solid noncalcified nodules that measure up to 6 mm - consider a follow-up CT in 12 months. COMMENT: Quality ID # [id number]: Final reports with documentation of one or more dose reduction techniques (e.g., Automated exposure control, adjustment of the mA and/or kV according to patient size, use of iterative reconstruction technique) TECHNICAL DOCUMENTATION: JOB ID: [id number] 2010 [employer]- All Rights Reserved Reading location - IP/workstation name: [email or web address]
[2019-07-16] MEDS ORDERED: ALBUTEROL SULFATE HFA (90 MCG/PUFF) 8 GM MDI IH PRN (11:00)
[2019-07-16] MEDS: LEVOFLOXACIN 500 MG TABLET PO SCH (12:25)
[2019-07-16] MEDS: ACETAMINOPHEN 325 MG TABLET PO PRN (13:57)
[2019-07-16] MEDS: OXYCODONE-ACETAMINOPHEN 5-325 MG TABLET PO PRN ×2 (14:52→21:20)
[2019-07-16 16:35] LABS: ARTERIAL BLOOD BASE EXCESS 2.7 mmol/L; ARTERIAL BLOOD H2CO3 1.62 mmol/L (1.05-1.35); ARTERIAL BLOOD HCO3 29.4 mmol/L (20-24); ARTERIAL BLOOD O2 SATURATION 76.7 % (94-98); ARTERIAL BLOOD PCO2 53.9 mmHg (35-45); ARTERIAL BLOOD PH 7.36 (7.35-7.45); ARTERIAL BLOOD PO2 43.7 mmHg (80-100); ARTERIAL BLOOD TOTAL CO2 31.1 mmol/L (21-25)
[2019-07-16 16:36] LABS: ARTERIAL BLOOD FIO2 30%
[2019-07-17] MEDS: IPRATROPIUM/ALBUTEROL 0.5-2.5 MG/3 ML AMPUL NEB PRN ×2 (01:29→10:33)
[2019-07-17] MEDS: ALBUTEROL SULFATE 0.083% NEB 2.5 MG/3 ML AMPUL NEB SCH ×6 (04:13→23:50)
[2019-07-17] MEDS: METHYLPREDNISOLONE INJ 40 MG/1 ML SDV IV SCH ×2 (05:28→17:14)
[2019-07-17] MEDS: ACETAMINOPHEN 325 MG TABLET PO PRN ×2 (05:49→13:51)
--- NOTE | 2019-07-17 08:03 | PDOC PROGRESS REPORT ---
Subjective Progress Note for:: 07/16/19 Subjective:: Breathing improved Reason For Visit: COPD EXACERBATION Physical Exam Vital Signs: Temp Pulse Resp BP Pulse Ox 97.4 F 87 24 H 124/70 97 07/17/19 03:33 07/17/19 04:15 07/17/19 04:15 07/17/19 03:33 07/17/19 03:33 Intake & Output 07/16/19 07/17/19 07/18/19 06:59 06:59 06:59 Intake Total 320 2030 Output Total 1 Balance 319 2030 Weight 95.1 kg 93 kg General appearance: PRESENT: no acute distress, well-developed, well-nourished Head exam: PRESENT: atraumatic, normocephalic Eye exam: PRESENT: conjunctiva pink, EOMI, PERRLA. ABSENT: scleral icterus Ear exam: PRESENT: normal external ear exam Mouth exam: PRESENT: moist, tongue midline Neck exam: ABSENT: carotid bruit, JVD, lymphadenopathy, thyromegaly Respiratory exam: PRESENT: rhonchi - Bilateral expiratory wheezing, unlabored, wheezes. ABSENT: rales Cardiovascular exam: PRESENT: RRR. ABSENT: diastolic murmur, rubs, systolic murmur Pulses: PRESENT: normal dorsalis pedis pul Vascular exam: PRESENT: normal capillary refill GI/Abdominal exam: PRESENT: normal bowel sounds, soft. ABSENT: distended, guarding, mass, organolmegaly, rebound, tenderness Rectal exam: PRESENT: deferred Extremities exam: PRESENT: full ROM. ABSENT: calf tenderness, clubbing, pedal edema Neurological exam: PRESENT: alert, awake, oriented to person, oriented to place, oriented to time, oriented to situation, CN II-XII grossly intact. ABSENT: motor sensory deficit Psychiatric exam: PRESENT: appropriate affect, normal mood. ABSENT: homicidal ideation, suicidal ideation Skin exam: PRESENT: dry, intact, warm. ABSENT: cyanosis, rash Results Laboratory Results: 07/15/19 11:06 07/15/19 11:06 07/16/19 16:05 Carbonic Acid 1.62 H HCO3/H2CO3 Ratio 18:1 ABG pH 7.36 ABG pCO2 53.9 H ABG pO2 43.7 L ABG HCO3 29.4 H ABG O2 Saturation 76.7 L ABG Base Excess 2.7 FiO2 30% Impressions: Chest X-Ray 07/15/19 11:01 IMPRESSION: NO ACUTE RADIOGRAPHIC FINDING IN THE CHEST. Chest/Abdomen CTA 07/16/19 00:00 IMPRESSION: 1. No central or segmental pulmonary embolus. 2. Mild emphysema and bronchial wall thickening without a superimposed acute ca rdiopulmonary process. 2. Solid noncalcified nodules that measure up to 6 mm - consider a follow-up CT in 12 months. Assessment and Plan - Diagnosis (1) Status asthmaticus with COPD (chronic obstructive pulmonary disease) Is this a current diagnosis for this admission?: Yes Plan: Improved Continue Duoneb, steroids (2) Acute hypoxemic respiratory failure Is this a current diagnosis for this admission?: Yes Plan: Continue Respiratory support with oxygen - Plan Summary Summary: Remains bronchospastic with intermittent tachypnea and hypoxemia She still requires hospital management due to her respiratory status - Time Time Spent with patient: 25-34 minutes Medications reviewed and adjusted accordingly: Yes Anticipated discharge: Home Within: within 72 hours
[2019-07-17] MEDS: ALPRAZOLAM 0.5 MG TABLET PO PRN ×3 (09:16→22:33)
[2019-07-17] MEDS: FAMOTIDINE 20 MG TABLET PO SCH ×2 (09:16→17:12)
[2019-07-17] MEDS: NICOTINE 14 MG/24 HR PATCH.TD24 TD SCH (09:16)
[2019-07-17] MEDS: ENOXAPARIN SODIUM INJ 40 MG/0.4 ML DISP.SYRIN SUBCUT SCH (10:14)
[2019-07-17] MEDS: DOCUSATE SODIUM 100 MG CAPSULE PO SCH (10:14)
[2019-07-17] MEDS: OXYCODONE-ACETAMINOPHEN 5-325 MG TABLET PO PRN ×2 (10:49→22:31)
[2019-07-17] MEDS: LEVOFLOXACIN 500 MG TABLET PO SCH (12:04)
--- NOTE | 2019-07-17 13:13 | PDOC PROGRESS REPORT ---
Subjective Progress Note for:: 07/17/19 Subjective:: Breathing improved and much less wheezing today however patient states she had difficulty breathing during the night. It appears she was not receiving her bronchodilators as ordered Reason For Visit: COPD EXACERBATION Physical Exam Vital Signs: Temp Pulse Resp BP Pulse Ox 98.0 F 101 H 20 122/59 L 94 07/17/19 11:12 07/17/19 12:27 07/17/19 12:27 07/17/19 11:12 07/17/19 12:27 Intake & Output 07/16/19 07/17/19 07/18/19 06:59 06:59 06:59 Intake Total 320 2030 Output Total 1 Balance 319 2030 Weight 95.1 kg 93 kg General appearance: PRESENT: no acute distress, cooperative, well-nourished Head exam: PRESENT: atraumatic Neck exam: PRESENT: full ROM. ABSENT: JVD Respiratory exam: PRESENT: rhonchi, tachypnea, unlabored, wheezes. ABSENT: stridor Cardiovascular exam: PRESENT: RRR, +S1, +S2 GI/Abdominal exam: PRESENT: soft. ABSENT: tenderness Rectal exam: PRESENT: deferred Musculoskeletal exam: PRESENT: ambulatory Neurological exam: PRESENT: alert, awake, oriented to person, oriented to time, oriented to situation Psychiatric exam: PRESENT: appropriate affect Results Laboratory Results: 07/15/19 11:06 07/15/19 11:06 07/16/19 16:05 Carbonic Acid 1.62 H HCO3/H2CO3 Ratio 18:1 ABG pH 7.36 ABG pCO2 53.9 H ABG pO2 43.7 L ABG HCO3 29.4 H ABG O2 Saturation 76.7 L ABG Base Excess 2.7 FiO2 30% Impressions: Chest X-Ray 07/15/19 11:01 IMPRESSION: NO ACUTE RADIOGRAPHIC FINDING IN THE CHEST. Chest/Abdomen CTA 07/16/19 00:00 IMPRESSION: 1. No central or segmental pulmonary embolus. 2. Mild emphysema and bronchial wall thickening without a superimposed acute cardiopulmonary process. 2. Solid noncalcified nodules that measure up to 6 mm - consider a follow-up CT in 12 months. Assessment and Plan - Diagnosis (1) Status asthmaticus with COPD (chronic obstructive pulmonary disease) Is this a current diagnosis for this admission?: Yes Plan: Slowly improving. Continue with bronchodilators and steroids Patient still requires hospital management due to her bronchospasms (2) Acute hypoxemic respiratory failure Is this a current diagnosis for this admission?: Yes Plan: Continue Respiratory support with oxygen and wean off as tolerated (3) Tobacco abuse disorder Is this a current diagnosis for this admission?: Yes Plan: Patient counseled on the need to immediately stop smoking. She understands the association between her breathing and smoking. Extensive time spent with the patient regarding the need to abstain from smoking - Plan Summary Summary: Remains bronchospastic with intermittent tachypnea and hypoxemia She continues to requires hospital management due to her respiratory status
[2019-07-17] MEDS ORDERED: MAG HYDROX/AL HYDROX/SIMETH SUSP 30 ML UDCUP PO PRN (16:54)
[2019-07-18] MEDS: METHYLPREDNISOLONE INJ 40 MG/1 ML SDV IV SCH ×5 (00:44→23:33)
[2019-07-18] MEDS: ALBUTEROL SULFATE 0.083% NEB 2.5 MG/3 ML AMPUL NEB SCH ×6 (03:08→23:34)
[2019-07-18] MEDS: IPRATROPIUM/ALBUTEROL 0.5-2.5 MG/3 ML AMPUL NEB PRN (05:44)
[2019-07-18] MEDS: ACETAMINOPHEN 325 MG TABLET PO PRN (06:00)
[2019-07-18 06:25] LABS: ABSOLUTE LYMPHOCYTES (AUTO) 0.4 10^3/uL (0.5-4.7); ABSOLUTE MONOCYTES (AUTO) 0.6 10^3/uL (0.1-1.4); ABSOLUTE NEUT (AUTO) 5.6 10^3/uL (1.7-8.2); BASOPHILS % (AUTO) 0.1 % (0-2); EOSINOPHILS % (AUTO) 0.1 % (0-6); HEMATOCRIT 40.2 % (36.0-47.0); HEMOGLOBIN 13.6 g/dL (12.0-15.5); LYMPHOCYTES % (AUTO) 5.6 % (13-45); MEAN CORPUSCULAR HEMOGLOBIN 30.7 pg (27.0-33.4); MEAN CORPUSCULAR HGB CONC 33.7 g/dL (32.0-36.0); MEAN CORPUSCULAR VOLUME 91 fl (80-97); MONOCYTES % (AUTO) 8.7 % (3-13); PLATELET COUNT 170 10^3/uL (150-450); RED BLOOD COUNT 4.42 10^6/uL (3.72-5.28); RED CELL DISTRIBUTION WIDTH 13.6 % (11.5-14.0); SEGMENTED NEUTROPHILS % (AUTO) 85.5 % (42-78); TOTAL CELLS COUNTED % (AUTO) 100 %; WHITE BLOOD COUNT 6.5 10^3/uL (4.0-10.5)
[2019-07-18 06:38] LABS: ANION GAP 6 (5-19); BLOOD UREA NITROGEN 19 mg/dL (7-20); CALCIUM 8.6 mg/dL (8.4-10.2); CARBON DIOXIDE 33 mmol/L (22-30); CHLORIDE 101 mmol/L (98-107); GLUCOSE 116 mg/dL (75-110); POTASSIUM 5.3 mmol/L (3.6-5.0)
[2019-07-18] MEDS: NICOTINE 14 MG/24 HR PATCH.TD24 TD SCH (10:27)
[2019-07-18] MEDS: DOCUSATE SODIUM 100 MG CAPSULE PO SCH (10:27)
[2019-07-18] MEDS: ENOXAPARIN SODIUM INJ 40 MG/0.4 ML DISP.SYRIN SUBCUT SCH (10:28)
[2019-07-18] MEDS: FAMOTIDINE 20 MG TABLET PO SCH ×2 (10:28→17:17)
[2019-07-18] MEDS: ALPRAZOLAM 0.5 MG TABLET PO PRN ×2 (10:30→21:35)
[2019-07-18] MEDS: LEVOFLOXACIN 500 MG TABLET PO SCH (11:30)
--- NOTE | 2019-07-18 12:37 | PDOC PROGRESS REPORT ---
Subjective Progress Note for:: 07/18/19 Subjective:: Breathing improved and much less wheezing today however patient states she had difficulty breathing during the night. It appears she was not receiving her bronchodilators as ordered 3/ patient feels that her breathing is improved. She is breathing better. Denies any chest pain. She still very short of breath especially on ambulation Reason For Visit: COPD EXACERBATION Physical Exam Vital Signs: Temp Pulse Resp BP Pulse Ox 98.0 F 99 20 138/68 H 94 07/18/19 08:06 07/18/19 11:48 07/18/19 11:48 07/18/19 08:06 07/18/19 11:48 Intake & Output 07/17/19 07/18/19 07/19/19 06:59 06:59 06:59 Intake Total 2029 1900 Balance 2029 1900 Weight 93 kg 88.4 kg General appearance: PRESENT: no acute distress, well-developed, well-nourished Head exam: PRESENT: atraumatic, normocephalic Eye exam: PRESENT: conjunctiva pink, EOMI, PERRLA. ABSENT: scleral icterus Ear exam: PRESENT: normal external ear exam Mouth exam: PRESENT: moist, tongue midline Neck exam: ABSENT: carotid bruit, JVD, lymphadenopathy, thyromegaly Respiratory exam: PRESENT: unlabored, wheezes - few basal scattered wheezing. ABSENT: rales, rhonchi Cardiovascular exam: PRESENT: RRR. ABSENT: diastolic murmur, rubs, systolic murmur Pulses: PRESENT: normal dorsalis pedis pul Vascular exam: PRESENT: normal capillary refill GI/Abdominal exam: PRESENT: normal bowel sounds, soft. ABSENT: distended, guarding, mass, organolmegaly, rebound, tenderness Rectal exam: PRESENT: deferred Extremities exam: PRESENT: full ROM. ABSENT: calf tenderness, clubbing, pedal edema Neurological exam: PRESENT: alert, awake, oriented to person, oriented to place, oriented to time, oriented to situation, CN II-XII grossly intact. ABSENT: motor sensory deficit Psychiatric exam: PRESENT: appropriate affect, normal mood. ABSENT: homicidal ideation, suicidal ideation Skin exam: PRESENT: dry, intact, warm. ABSENT: cyanosis, rash Results Laboratory Results: 07/18/19 05:27 07/18/19 05:27 07/18/19 07/18/19 05:27 05:27 WBC 6.5 RBC 4.42 Hgb 13.6 Hct 40.2 MCV 91 MCH 30.7 MCHC 33.7 RDW 13.6 Plt Count 170 Seg Neutrophils % 85.5 H Sodium 140.4 Potassium 5.3 H Chloride 101 Carbon Dioxide 33 H Anion Gap 6 BUN 19 Creatinine 0.79 Est GFR ( Amer) > 60 Glucose 116 H Calcium 8.6 Impressions: Chest X-Ray 07/15/19 11:01 IMPRESSION: NO ACUTE RADIOGRAPHIC FINDING IN THE CHEST. Chest/Abdomen CTA 07/16/19 00:00 IMPRESSION: 1. No central or segmental pulmonary embolus. 2. Mild emphysema and bronchial wall thickening without a superimposed acute cardiopulmonary process. 2. Solid noncalcified nodules that measure up to 6 mm - consider a follow-up CT in 12 months. Assessment and Plan - Diagnosis (1) Status asthmaticus with COPD (chronic obstructive pulmonary disease) Is this a current diagnosis for this admission?: Yes Plan: Bronchospasm is much improved today. She has very few scattered wheezing at the time of my exam. (2) Acute hypoxemic respiratory failure Is this a current diagnosis for this admission?: Yes Plan: Still requiring oxygen support especially with ambulation. We will continue to taper as per her clinical response. (3) Tobacco abuse disorder Is this a current diagnosis for this admission?: Yes - Plan Summary Summary: Improved bronchospasm with intermittent tachypnea and hypoxemia She continues to requires hospital management due to her respiratory status - Inpatient Certification Based on my medical assessment, after consideration of the patient's comorbidities, presenting symptoms, or acuity I expect that the services needed warrant INPATIENT care.: Yes Medical Necessity: Need Close Monitoring Due to Risk of Patient Decompensation, Need for Nebulizer Therapy and Monitoring of Response
[2019-07-18] MEDS: OXYCODONE-ACETAMINOPHEN 5-325 MG TABLET PO PRN ×2 (15:09→21:34)
[2019-07-18] MEDS: FLUTICASONE/VILANTEROL 200-25 MCG/DOSE IH SCH (15:09)
[2019-07-18] MEDS ORDERED: FLUTICASONE PROPION IH SCH (22:00)
[2019-07-18] MEDS ORDERED: SALMETEROL IH SCH (22:00)
[2019-07-18] MEDS ORDERED: [UNRECOGNIZED DRUG - OTHER] IH SCH (22:00)
[2019-07-19] MEDS: ALBUTEROL SULFATE 0.083% NEB 2.5 MG/3 ML AMPUL NEB SCH ×5 (03:14→19:48)
[2019-07-19] MEDS: OXYCODONE-ACETAMINOPHEN 5-325 MG TABLET PO PRN ×2 (03:36→23:05)
[2019-07-19] MEDS: ALPRAZOLAM 0.5 MG TABLET PO PRN (03:37)
[2019-07-19] MEDS: METHYLPREDNISOLONE INJ 40 MG/1 ML SDV IV SCH ×3 (05:33→21:10)
[2019-07-19] MEDS: IPRATROPIUM/ALBUTEROL 0.5-2.5 MG/3 ML AMPUL NEB PRN (05:54)
[2019-07-19] MEDS: FAMOTIDINE 20 MG TABLET PO SCH ×2 (09:40→18:10)
[2019-07-19] MEDS: NICOTINE 14 MG/24 HR PATCH.TD24 TD SCH (09:40)
[2019-07-19] MEDS: DOCUSATE SODIUM 100 MG CAPSULE PO SCH (09:41)
[2019-07-19] MEDS: ENOXAPARIN SODIUM INJ 40 MG/0.4 ML DISP.SYRIN SUBCUT SCH (09:41)
[2019-07-19] MEDS: FLUTICASONE/VILANTEROL 200-25 MCG/DOSE IH SCH (09:41)
--- NOTE | 2019-07-19 11:44 | PDOC PROGRESS REPORT ---
Subjective Progress Note for:: 07/19/19 Subjective:: Breathing improved and much less wheezing today however patient states she had difficulty breathing during the night. It appears she was not receiving her bronchodilators as ordered 07/17 patient feels that her breathing is improved. She is breathing better. Denies any chest pain. She still very short of breath especially on ambulation 07/18 patient weeping off and on during the night and this morning, she is anxious about various things, still wheezing especially driven by anxiety Reason For Visit: COPD EXACERBATION Physical Exam Vital Signs: Temp Pulse Resp BP Pulse Ox 98.1 F 81 16 135/66 H 93 07/19/19 09:31 07/19/19 09:31 07/19/19 09:31 07/19/19 09:31 07/19/19 09:31 Intake & Output 07/18/19 07/19/19 07/20/19 06:59 06:59 07:59 Intake Total 1901 1612 Output Total 0 Balance 1901 1612 Weight 88.4 kg 96.6 kg General appearance: PRESENT: no acute distress, obese, well-developed, well-nourished Head exam: PRESENT: atraumatic, normocephalic Eye exam: PRESENT: conjunctiva pink, EOMI, PERRLA. ABSENT: scleral icterus Ear exam: PRESENT: normal external ear exam Mouth exam: PRESENT: moist, tongue midline Neck exam: ABSENT: carotid bruit, JVD, lymphadenopathy, thyromegaly Respiratory exam: PRESENT: rhonchi, unlabored, wheezes. ABSENT: rales Cardiovascular exam: PRESENT: RRR, +S1, +S2. ABSENT: diastolic murmur, rubs, systolic murmur Pulses: PRESENT: normal dorsalis pedis pul Vascular exam: PRESENT: normal capillary refill GI/Abdominal exam: PRESENT: normal bowel sounds, soft. ABSENT: distended, guarding, mass, organolmegaly, rebound, tenderness Rectal exam: PRESENT: deferred Extremities exam: PRESENT: full ROM. ABSENT: calf tenderness, clubbing, pedal edema Neurological exam: PRESENT: alert, awake, oriented to person, oriented to place, oriented to time, oriented to situation, CN II-XII grossly intact. ABSENT: motor sensory deficit Psychiatric exam: PRESENT: appropriate affect, normal mood. ABSENT: homicidal ideation, suicidal ideation Skin exam: PRESENT: dry, intact, warm. ABSENT: cyanosis, rash Results Laboratory Results: 07/18/19 05:27 07/18/19 05:27 Impressions: Chest X-Ray 07/15/19 11:01 IMPRESSION: NO ACUTE RADIOGRAPHIC FINDING IN THE CHEST. Chest/Abdomen CTA 07/16/19 00:00 IMPRESSION: 1. No central or segmental pulmonary embolus. 2. Mild emphysema and bronchial wall thickening without a superimposed acute cardiopulmonary process. 2. Solid noncalcified nodules that measure up to 6 mm - consider a follow-up CT in 12 months. Assessment and Plan - Diagnosis (1) Status asthmaticus with COPD (chronic obstructive pulmonary disease) Is this a current diagnosis for this admission?: Yes Plan: Bronchospasm is much improved today. She has very few scattered wheezing at the time of my exam. 07/18 Breathing improved but still bronchospastic driven by anxiety Still on Oxygen but will taper down as tolerated (2) Acute hypoxemic respiratory failure Is this a current diagnosis for this admission?: Yes Plan: Still requiring oxygen support especially with ambulation. We will continue to taper as per her clinical response. (3) Tobacco abuse disorder Is this a current diagnosis for this admission?: Yes Plan: Patient counseled on the need to immediately stop smoking. She understands the association between her breathing and smoking. Extensive time spent with the patient regarding the need to abstain from smoking (4) Anxiety and depression Is this a current diagnosis for this admission?: Yes Plan: Will start on Well butrin - Plan Summary Summary: 07/18 Improved bronchospasm with intermittent tachypnea and hypoxemia She continues to requires hospital management due to her respiratory status - Inpatient Certification Based on my medical assessment, after consideration of the patient's comorbid ities, presenting symptoms, or acuity I expect that the services needed warrant INPATIENT care.: Yes Medical Necessity: Need Close Monitoring Due to Risk of Patient Decompensation, Need for Nebulizer Therapy and Monitoring of Response
[2019-07-19] MEDS: BUPROPION HCL 75 MG TABLET PO SCH ×2 (13:27→21:10)
[2019-07-19] MEDS: LEVOFLOXACIN 500 MG TABLET PO SCH (13:27)
[2019-07-19] MEDS: CLONAZEPAM 1 MG TABLET PO SCH ×2 (13:27→21:10)
[2019-07-20] MEDS: ALBUTEROL SULFATE 0.083% NEB 2.5 MG/3 ML AMPUL NEB SCH ×6 (00:47→19:25)
[2019-07-20] MEDS: ACETAMINOPHEN 325 MG TABLET PO PRN (03:57)
[2019-07-20] MEDS: METHYLPREDNISOLONE INJ 40 MG/1 ML SDV IV SCH ×3 (06:00→21:13)
[2019-07-20 06:10] LABS: ABSOLUTE LYMPHOCYTES (AUTO) 0.6 10^3/uL (0.5-4.7); ABSOLUTE MONOCYTES (AUTO) 0.6 10^3/uL (0.1-1.4); ABSOLUTE NEUT (AUTO) 4.2 10^3/uL (1.7-8.2); BASOPHILS % (AUTO) 0.1 % (0-2); EOSINOPHILS % (AUTO) 0.1 % (0-6); HEMATOCRIT 38.7 % (36.0-47.0); HEMOGLOBIN 13.2 g/dL (12.0-15.5); LYMPHOCYTES % (AUTO) 11.7 % (13-45); MEAN CORPUSCULAR HEMOGLOBIN 30.8 pg (27.0-33.4); MEAN CORPUSCULAR VOLUME 90 fl (80-97); MONOCYTES % (AUTO) 11.3 % (3-13); PLATELET COUNT 168 10^3/uL (150-450); RED BLOOD COUNT 4.28 10^6/uL (3.72-5.28); RED CELL DISTRIBUTION WIDTH 13.7 % (11.5-14.0); SEGMENTED NEUTROPHILS % (AUTO) 76.8 % (42-78); TOTAL CELLS COUNTED % (AUTO) 100 %; WHITE BLOOD COUNT 5.5 10^3/uL (4.0-10.5)
[2019-07-20 06:36] LABS: ANION GAP 5 (5-19); BLOOD UREA NITROGEN 17 mg/dL (7-20); CALCIUM 8.3 mg/dL (8.4-10.2); CARBON DIOXIDE 34 mmol/L (22-30); CHLORIDE 100 mmol/L (98-107); GLUCOSE 152 mg/dL (75-110); POTASSIUM 4.5 mmol/L (3.6-5.0)
[2019-07-20] MEDS: BUPROPION HCL 75 MG TABLET PO SCH ×2 (09:46→21:13)
[2019-07-20] MEDS: DOCUSATE SODIUM 100 MG CAPSULE PO SCH (09:46)
[2019-07-20] MEDS: CLONAZEPAM 1 MG TABLET PO SCH ×2 (09:46→21:13)
[2019-07-20] MEDS: FLUTICASONE/VILANTEROL 200-25 MCG/DOSE IH SCH (09:46)
[2019-07-20] MEDS: NICOTINE 14 MG/24 HR PATCH.TD24 TD SCH (09:47)
[2019-07-20] MEDS: OXYCODONE-ACETAMINOPHEN 5-325 MG TABLET PO PRN ×2 (09:52→16:23)
[2019-07-20] MEDS: FAMOTIDINE 20 MG TABLET PO SCH ×2 (09:53→17:05)
[2019-07-20] MEDS: ENOXAPARIN SODIUM INJ 40 MG/0.4 ML DISP.SYRIN SUBCUT SCH (09:53)
[2019-07-20] MEDS: LEVOFLOXACIN 500 MG TABLET PO SCH (13:45)
--- NOTE | 2019-07-20 15:20 | PDOC PROGRESS REPORT ---
Subjective Progress Note for:: 07/20/19 Subjective:: Breathing improved and much less wheezing today however patient states she had difficulty breathing during the night. It appears she was not receiving her bronchodilators as ordered 07/17 patient feels that her breathing is improved. She is breathing better. Denies any chest pain. She still very short of breath especially on ambulation 07/18 patient weeping off and on during the night and this morning, she is anxious about various things, still wheezing especially driven by anxiety 07/19 Feels she is better today once her oxygen was placed back on Reason For Visit: COPD EXACERBATION Physical Exam Vital Signs: Temp Pulse Resp BP Pulse Ox 97.6 F 76 20 131/71 H 94 07/20/19 12:05 07/20/19 14:00 07/20/19 12:17 07/20/19 12:05 07/20/19 12:17 Intake & Output 07/19/19 07/20/19 07/21/19 05:59 06:59 06:59 Intake Total Output Total Balance Weight General appearance: PRESENT: no acute distress, well-developed, well-nourished Head exam: PRESENT: atraumatic, normocephalic Eye exam: PRESENT: conjunctiva pink, EOMI. ABSENT: scleral icterus Ear exam: PRESENT: normal external ear exam Neck exam: ABSENT: carotid bruit, JVD, lymphadenopathy, thyromegaly Respiratory exam: PRESENT: rhonchi, wheezes - few scattered rhonchi and wheezing. ABSENT: rales Cardiovascular exam: PRESENT: RRR. ABSENT: diastolic murmur, rubs, systolic murmur Pulses: PRESENT: normal dorsalis pedis pul Vascular exam: PRESENT: normal capillary refill GI/Abdominal exam: PRESENT: normal bowel sounds, soft. ABSENT: distended, guarding, mass, organolmegaly, rebound, tenderness Rectal exam: PRESENT: deferred Extremities exam: PRESENT: full ROM. ABSENT: calf tenderness, clubbing, pedal edema Neurological exam: PRESENT: alert, awake, oriented to person, oriented to place, oriented to time, oriented to situation, CN II-XII grossly intact. ABSENT: motor sensory deficit Psychiatric exam: PRESENT: appropriate affect, normal mood. ABSENT: homicidal ideation, suicidal ideation Skin exam: PRESENT: dry, intact, warm. ABSENT: cyanosis, rash Results Laboratory Results: 07/20/19 05:16 03/08/20 05:16 07/20/19 07/20/19 05:16 05:16 WBC 5.5 RBC 4.28 Hgb 13.2 Hct 38.7 MCV 90 MCH 30.8 MCHC 34.0 RDW 13.7 Plt Count 168 Seg Neutrophils % 76.8 Sodium 138.8 Potassium 4.5 Chloride 100 Carbon Dioxide 34 H Anion Gap 5 BUN 17 Creatinine 0.73 Est GFR ( Amer) > 60 Glucose 152 H Calcium 8.3 L 07/15/19 12:00 Blood Blood Culture - Final NO GROWTH IN 5 DAYS Impressions: Chest X-Ray 07/15/19 11:01 IMPRESSION: NO ACUTE RADIOGRAPHIC FINDING IN THE CHEST. Chest/Abdomen CTA 07/16/19 00:00 IMPRESSION: 1. No central or segmental pulmonary embolus. 2. Mild emphysema and bronchial wall thickening without a superimposed acute cardiopulmonary process. 2. Solid noncalcified nodules that measure up to 6 mm - consider a follow-up CT in 12 months. Assessment and Plan - Diagnosis (1) Status asthmaticus with COPD (chronic obstructive pulmonary disease) Is this a current diagnosis for this admission?: Yes (2) Acute hypoxemic respiratory failure Is this a current diagnosis for this admission?: Yes (3) Tobacco abuse disorder Is this a current diagnosis for this admission?: Yes (4) Anxiety and depression Is this a current diagnosis for this admission?: Yes - Plan Summary Summary: 07/18 Improved bronchospasm with intermittent tachypnea and hypoxemia She continues to requires hospital management due to her respiratory status 07/19 Continues to improve She remains hypoxic - Time Time Spent with patient: 25-34 minutes Medications reviewed and adjusted accordingly: Yes Anticipated discharge: Home Within: within 48 hours - Inpatient Certification Based on my medical assessment, after consideration of the patient's comorbidities, presenting symptoms, or acuity I expect that the services needed warrant INPATIENT care.: Yes
[2019-07-21] MEDS: ALBUTEROL SULFATE 0.083% NEB 2.5 MG/3 ML AMPUL NEB SCH ×6 (00:32→19:51)
[2019-07-21] MEDS: OXYCODONE-ACETAMINOPHEN 5-325 MG TABLET PO PRN ×3 (00:45→21:53)
[2019-07-21] MEDS: METHYLPREDNISOLONE INJ 40 MG/1 ML SDV IV SCH ×2 (05:07→14:25)
[2019-07-21] MEDS: FAMOTIDINE 20 MG TABLET PO SCH ×2 (09:12→17:45)
[2019-07-21] MEDS: NICOTINE 14 MG/24 HR PATCH.TD24 TD SCH (09:13)
[2019-07-21] MEDS: FLUTICASONE/VILANTEROL 200-25 MCG/DOSE IH SCH (09:14)
[2019-07-21] MEDS: DOCUSATE SODIUM 100 MG CAPSULE PO SCH (09:14)
[2019-07-21] MEDS: ENOXAPARIN SODIUM INJ 40 MG/0.4 ML DISP.SYRIN SUBCUT SCH (09:14)
[2019-07-21] MEDS: BUPROPION HCL 75 MG TABLET PO SCH ×2 (09:14→21:53)
[2019-07-21] MEDS: CLONAZEPAM 1 MG TABLET PO SCH ×2 (09:14→21:54)
[2019-07-21] MEDS: LEVOFLOXACIN 500 MG TABLET PO SCH (12:36)
--- NOTE | 2019-07-21 17:19 | PDOC PROGRESS REPORT ---
Subjective Progress Note for:: 07/21/19 Subjective:: Breathing improved and much less wheezing today however patient states she had difficulty breathing during the night. It appears she was not receiving her bronchodilators as ordered 07/17 patient feels that her breathing is improved. She is breathing better. Denies any chest pain. She still very short of breath especially on ambulation 07/18 patient weeping off and on during the night and this morning, she is anxious about various things, still wheezing especially driven by anxiety 07/19 Feels she is better today once her oxygen was placed back on 07/20 and continues to gradually improve. She feels that her breathing is much better today. She is still very dyspneic especially with ambulation but is able to take more steps today Reason For Visit: COPD EXACERBATION Physical Exam Vital Signs: Temp Pulse Resp BP Pulse Ox 97.2 F 73 16 138/80 H 95 07/21/19 15:29 07/21/19 15:37 07/21/19 15:37 07/21/19 15:29 07/21/19 15:37 Intake & Output 07/20/19 07/21/19 07/22/19 06:59 06:59 06:59 Intake Total 2228 640 Output Total Balance 2228 640 Weight 96.2 kg General appearance: PRESENT: no acute distress, well-developed, well-nourished Head exam: PRESENT: atraumatic, normocephalic Eye exam: PRESENT: conjunctiva pink, EOMI, PERRLA. ABSENT: scleral icterus Ear exam: PRESENT: normal external ear exam Mouth exam: PRESENT: moist, tongue midline Neck exam: ABSENT: carotid bruit, JVD, lymphadenopathy, thyromegaly Respiratory exam: PRESENT: decreased breath sounds, unlabored, wheezes. ABSENT: rales, rhonchi Cardiovascular exam: PRESENT: RRR. ABSENT: diastolic murmur, rubs, systolic murmur Pulses: PRESENT: normal dorsalis pedis pul Vascular exam: PRESENT: normal capillary refill GI/Abdominal exam: PRESENT: normal bowel sounds, soft. ABSENT: distended, guarding, mass, organolmegaly, rebound, tenderness Rectal exam: PRESENT: deferred Extremities exam: PRESENT: full ROM. ABSENT: calf tenderness, clubbing, pedal edema Neurological exam: PRESENT: alert, awake, oriented to person, oriented to place, oriented to time, oriented to situation, CN II-XII grossly intact. ABSENT: motor sensory deficit Psychiatric exam: PRESENT: appropriate affect, normal mood. ABSENT: homicidal ideation, suicidal ideation Skin exam: PRESENT: dry, intact, warm. ABSENT: cyanosis, rash Results Laboratory Results: 07/20/19 05:16 07/20/19 05:16 07/15/19 15:36 Blood Blood Culture - Final NO GROWTH IN 5 DAYS 07/15/19 12:00 Blood Blood Culture - Final NO GROWTH IN 5 DAYS Impressions: Chest X-Ray 07/15/19 11:01 IMPRESSION: NO ACUTE RADIOGRAPHIC FINDING IN THE CHEST. Chest/Abdomen CTA 07/16/19 00:00 IMPRESSION: 1. No central or segmental pulmonary embolus. 2. Mild emphysema and bronchial wall thickening without a superimposed acute cardiopulmonary process. 2. Solid noncalcified nodules that measure up to 6 mm - consider a follow-up CT in 12 months. Assessment and Plan - Diagnosis (1) Status asthmaticus with COPD (chronic obstructive pulmonary disease) Is this a current diagnosis for this admission?: Yes Plan: Bronchospasm is much improved today. She has very few scattered wheezing at the time of my exam. 07/18 Breathing improved but still bronchospastic driven by anxiety Still on Oxygen but will taper down as tolerated 07/19 she is still requiring oxygen at this point I am pretty sure she will require home oxygen. Patient will benefit from pulmonology consult but since there is none available in the hospital at this can be arranged as outpatient. Because of her prolonged bronchospasm she will need a slow taper of her steroids. I have dropped her steroids to 40 mg every 12 hours of Solu-Medrol today and this should be judiciously to pad as per her response (2) Acute hypoxemic respiratory failure Is this a current diagnosis for this admission?: Yes Plan: Still requiring oxygen support especially with ambulation. We will continue to taper as per her clinical response. (3) Tobacco abuse disorder Is this a current diagnosis for this admission?: Yes (4) Anxiety and depression Is this a current diagnosis for this admission?: Yes Plan: She thinks she is better with the Wellbutrin and Klonopin - Plan Summary Summary: 07/18 Improved bronchospasm with intermittent tachypnea and hypoxemia She continues to requires hospital management due to her respiratory status 07/19 Continues to improve She remains hypoxic 07/20 gradual taper of steroids as well as gradual weaning off of oxygen as tolerated. - Time Time Spent with patient: 15-24 minutes Medications reviewed and adjusted accordingly: Yes Anticipated discharge: Home Within: within 72 hours - Inpatient Certification Based on my medical assessment, after consideration of the patient's comorbidities, presenting symptoms, or acuity I expect that the services needed warrant INPATIENT care.: Yes Medical Necessity: Need for Nebulizer Therapy and Monitoring of Response
[2019-07-21] MEDS ORDERED: METHYLPREDNISOLONE INJ 40 MG/1 ML SDV IV SCH (22:00)
[2019-07-22] MEDS: ALBUTEROL SULFATE 0.083% NEB 2.5 MG/3 ML AMPUL NEB SCH ×6 (00:27→20:32)
[2019-07-22] MEDS: OXYCODONE-ACETAMINOPHEN 5-325 MG TABLET PO PRN ×2 (06:32→17:29)
[2019-07-22] MEDS: CLONAZEPAM 1 MG TABLET PO SCH ×2 (10:13→21:50)
[2019-07-22] MEDS: DOCUSATE SODIUM 100 MG CAPSULE PO SCH (10:13)
[2019-07-22] MEDS: BUPROPION HCL 75 MG TABLET PO SCH ×2 (10:13→21:50)
[2019-07-22] MEDS: FLUTICASONE/VILANTEROL 200-25 MCG/DOSE IH SCH (10:14)
[2019-07-22] MEDS: NICOTINE 14 MG/24 HR PATCH.TD24 TD SCH (10:14)
[2019-07-22] MEDS: ENOXAPARIN SODIUM INJ 40 MG/0.4 ML DISP.SYRIN SUBCUT SCH (10:14)
[2019-07-22] MEDS: FAMOTIDINE 20 MG TABLET PO SCH ×3 (10:15→17:29)
[2019-07-22] MEDS: METHYLPREDNISOLONE INJ 40 MG/1 ML SDV IV SCH ×2 (10:15→21:50)
[2019-07-22] MEDS: LEVOFLOXACIN 500 MG TABLET PO SCH (11:58)
[2019-07-22] MEDS: ALPRAZOLAM 0.5 MG TABLET PO PRN (14:01)
--- NOTE | 2019-07-22 19:29 | PDOC PROGRESS REPORT ---
Subjective Progress Note for:: 07/22/19 Subjective:: Patient was seen on morning rounds. She was found sitting up to the chair, comfortably, on supplemental oxygen via nasal cannula. She reports that she continues to use BiPAP overnight. She is not home O2 dependent does not have CPAP or BiPAP at home. She reports that she is followed by the [facility] but is not established with a snagger. Patient reports that she feels significantly better than her baseline respiratory status; currently the best she does report continued dyspnea with exertion and a nonproductive cough. She denies fever, chest pain, abdominal pain, nausea vomiting and diarrhea. She has no other questions or concerns at this time. No concerns per nursing. Reason For Visit: COPD EXACERBATION Physical Exam Vital Signs: Temp Pulse Resp BP Pulse Ox 98.1 F 79 16 126/68 H 100 07/22/19 16:01 07/22/19 16:01 07/22/19 16:01 07/22/19 16:01 07/22/19 16:01 Intake & Output 07/21/19 07/22/19 07/23/19 06:59 06:59 06:59 Intake Total 2228 862 830 Balance 2228 862 830 Weight 96.2 kg 94.6 kg 94.6 kg General appearance: PRESENT: no acute distress, well-developed, well-nourished Head exam: PRESENT: atraumatic, normocephalic Eye exam: PRESENT: conjunctiva pink, EOMI, PERRLA. ABSENT: scleral icterus Ear exam: PRESENT: normal external ear exam Mouth exam: PRESENT: moist, tongue midline Teeth exam: PRESENT: poor dentation Respiratory exam: PRESENT: decreased breath sounds, prolonged expiratory phas, symmetrical, unlabored, wheezes - Right lower mcclure, other - supplemental oxygen via NC. ABSENT: rales, rhonchi Cardiovascular exam: PRESENT: RRR, +S1, +S2. ABSENT: diastolic murmur, rubs, systolic murmur Pulses: PRESENT: normal dorsalis pedis pul Vascular exam: PRESENT: normal capillary refill Rectal exam: PRESENT: deferred Extremities exam: PRESENT: full ROM. ABSENT: calf tenderness, clubbing, pedal edema Musculoskeletal exam: PRESENT: ambulatory Neurological exam: PRESENT: alert, awake, oriented to person, oriented to place, oriented to time, oriented to situation, CN II-XII grossly intact. ABSENT: motor sensory deficit Psychiatric exam: PRESENT: appropriate affect, normal mood. ABSENT: homicidal ideation, suicidal ideation Skin exam: PRESENT: dry, intact, warm. ABSENT: cyanosis, rash Results Laboratory Results: 07/20/19 05:16 07/20/19 05:16 Impressions: Chest X-Ray 07/15/19 11:01 IMPRESSION: NO ACUTE RADIOGRAPHIC FINDING IN THE CHEST. Chest/Abdomen CTA 07/16/19 00:00 IMPRESSION: 1. No central or segmental pulmonary embolus. 2. Mild emphysema and bronchial wall thickening without a superimposed acute cardiopulmonary process. 2. Solid noncalcified nodules that measure up to 6 mm - consider a follow-up CT in 12 months. Assessment and Plan - Diagnosis (1) Status asthmaticus with COPD (chronic obstructive pulmonary disease) Is this a current diagnosis for this admission?: Yes Plan: Significantly improved. Patient is now maintaining oxygen saturations on room air while at rest. She does continue to require supplemental oxygen while ambulatory. She was noted to have right lower field wheezing on exam today. Patient is admitted to the medical floor on continuous cardiac telemetry. Will provide supplemental oxygen and BiPAP as needed to maintain saturations greater than 89%. Start on scheduled and as needed nebulizer treatments. Will decrease frequency of scheduled treatments today. Provide IV Solu-Medrol; continue weaning. Likely transition to p.o. prednisone tomorrow. Continue Breo. Pulmonary toilet is encouraged with incentive spirometer, flutter valve, and early ambulation. (2) Acute hypoxemic respiratory failure Is this a current diagnosis for this admission?: Yes Plan: Secondary to #1. Overall improved with decreased oxygen requirement. Remaining evaluation management as above. (3) Tobacco abuse disorder Is this a current diagnosis for this admission?: Yes Plan: Smoking cessation encouraged. Nicotine replacement therapies provided. (4) Obesity (BMI 30-39.9) Is this a current diagnosis for this admission?: Yes Plan: Patient's BMI is 38.1. She would benefit from outpatient overnight sleep study to evaluate for JAYLA. She is encouraged to lose weight; lifestyle and dietary modifications are encouraged. (5) Anxiety and depression Is this a current diagnosis for this admission?: Yes Plan: Continue Wellbutrin and Klonopin - Time Time Spent with patient: 35 or more minutes Medications reviewed and adjusted accordingly: Yes Anticipated discharge: Home Within: within 24 hours
[2019-07-22] MEDS: ACETAMINOPHEN 325 MG TABLET PO PRN (22:49)
[2019-07-23] MEDS: ALBUTEROL SULFATE 0.083% NEB 2.5 MG/3 ML AMPUL NEB SCH ×4 (02:56→20:46)
[2019-07-23] MEDS: ACETAMINOPHEN 325 MG TABLET PO PRN ×2 (06:10→23:55)
[2019-07-23] MEDS: NICOTINE 14 MG/24 HR PATCH.TD24 TD SCH (09:52)
[2019-07-23] MEDS: FLUTICASONE/VILANTEROL 200-25 MCG/DOSE IH SCH (09:54)
[2019-07-23] MEDS: BUPROPION HCL 75 MG TABLET PO SCH ×2 (09:54→21:19)
[2019-07-23] MEDS: METHYLPREDNISOLONE INJ 40 MG/1 ML SDV IV SCH (09:54)
[2019-07-23] MEDS: FAMOTIDINE 20 MG TABLET PO SCH ×2 (09:54→18:01)
[2019-07-23] MEDS: CLONAZEPAM 1 MG TABLET PO SCH ×2 (09:54→21:19)
[2019-07-23] MEDS: DOCUSATE SODIUM 100 MG CAPSULE PO SCH (09:54)
[2019-07-23] MEDS: ENOXAPARIN SODIUM INJ 40 MG/0.4 ML DISP.SYRIN SUBCUT SCH (09:55)
[2019-07-23] MEDS: IPRATROPIUM/ALBUTEROL 0.5-2.5 MG/3 ML AMPUL NEB PRN (13:43)
[2019-07-23] MEDS ORDERED: BENZOCAINE/MENTHOL SORE THROAT LOZENGE BUCCAL PRN (19:41)
--- NOTE | 2019-07-23 19:45 | PDOC PROGRESS REPORT ---
Subjective Progress Note for:: 07/23/19 Subjective:: Patient was seen on afternoon rounds. She was found sitting up to the chair, comfortably, on supplemental oxygen via nasal cannula. She reports that she continues to use BiPAP overnight. She is not home O2 dependent does not have CPAP or BiPAP at home. She reports that she is followed by the [facility] but is not established with a engineering consultant. She is very concerned about being able to afford her medications and possible need for oxygen. We did discuss her need to discontinue smoking. She reports right chest wall pain with inspiration and cough. Otherwise, feeling much better. She denies fever, chest pain, abdominal pain, nausea vomiting and diarrhea. She has no other questions or concerns at this time. No concerns per nursing. Reason For Visit: COPD EXACERBATION Physical Exam Vital Signs: Temp Pulse Resp BP Pulse Ox 98.4 F 77 16 129/66 H 95 07/23/19 15:14 07/23/19 15:14 07/23/19 15:14 07/23/19 15:14 07/23/19 15:14 Intake & Output 07/22/19 07/23/19 07/24/19 06:59 06:59 06:59 Intake Total 862 830 800 Balance 862 830 800 Weight 94.6 kg 95.9 kg General appearance: PRESENT: no acute distress, well-developed, well-nourished Head exam: PRESENT: atraumatic, normocephalic Eye exam: PRESENT: conjunctiva pink, EOMI, PERRLA. ABSENT: scleral icterus Ear exam: PRESENT: normal external ear exam Mouth exam: PRESENT: moist, tongue midline Teeth exam: PRESENT: poor dentation Respiratory exam: PRESENT: prolonged expiratory phas, rhonchi, symmetrical, unlabored, wheezes, other - Supplemental oxygen by nasal cannula. ABSENT: rales Cardiovascular exam: PRESENT: RRR, +S1, +S2. ABSENT: diastolic murmur, rubs, systolic murmur Pulses: PRESENT: normal dorsalis pedis pul Vascular exam: PRESENT: normal capillary refill Extremities exam: PRESENT: full ROM. ABSENT: calf tenderness, clubbing, pedal edema Musculoskeletal exam: PRESENT: ambulatory Neurological exam: PRESENT: alert, awake, oriented to person, oriented to place, oriented to time, oriented to situation, CN II-XII grossly intact. ABSENT: motor sensory deficit Psychiatric exam: PRESENT: appropriate affect, normal mood. ABSENT: homicidal ideation, suicidal ideation Skin exam: PRESENT: dry, intact, warm. ABSENT: cyanosis, rash Results Laboratory Results: 07/20/19 05:16 07/20/19 05:16 Impressions: Chest X-Ray 07/15/19 11:01 IMPRESSION: NO ACUTE RADIOGRAPHIC FINDING IN THE CHEST. Chest/Abdomen CTA 07/16/19 00:00 IMPRESSION: 1. No central or segmental pulmonary embolus. 2. Mild emphysema and bronchial wall thickening without a superimposed acute cardiopulmonary process. 2. Solid noncalcified nodules that measure up to 6 mm - consider a follow-up CT in 12 months. Assessment and Plan - Diagnosis (1) Status asthmaticus with COPD (chronic obstructive pulmonary disease) Is this a current diagnosis for this admission?: Yes Plan: Significantly improved. Patient is now maintaining oxygen saturations on room air while at rest. She does continue to require supplemental oxygen while ambulatory (maintain oxygen saturations of 88 to 93% without increased work of breathing). She was noted to have right lower field wheezing on exam today. Patient is admitted to the medical floor on continuous cardiac telemetry. Will provide supplemental oxygen and BiPAP as needed to maintain saturations greater than 89%. Start on scheduled and as needed nebulizer treatments. Will decrease frequency of scheduled treatments today. Transition to p.o. prednisone. Continue Breo. Pulmonary toilet is encouraged with incentive spirometer, flutter valve, and early ambulation. (2) Acute hypoxemic respiratory failure Is this a current diagnosis for this admission?: Yes Plan: Secondary to #1. Overall improved with decreased oxygen requirement. Remaining evaluation management as above. (3) Tobacco abuse disorder Is this a current diagnosis for this admission?: Yes Plan: Smoking cessation encouraged. Nicotine replacement therapies provided. (4) Obesity (BMI 30-39.9) Is this a current diagnosis for this admission?: Yes Plan: Patient's BMI is 38.1. She would benefit from outpatient overnight sleep study to evaluate for JAYLA. She is encouraged to lose weight; lifestyle and dietary modifications are encouraged. (5) Anxiety and depression Is this a current diagnosis for this admission?: Yes Plan: Continue Wellbutrin and Klonopin - Time Time Spent with patient: 25-34 minutes Smoking Cessation Education: 3 to 10 minutes Medications reviewed and adjusted accordingly: Yes Anticipated discharge: Home Within: within 24 hours
[2019-07-23] MEDS ORDERED: PREDNISONE 20 MG TABLET PO ONE (20:30)
[2019-07-23] MEDS ORDERED: LIDOCAINE 5% (700 MG) TRANSDERMAL ADH..PATCH TP SCH (22:00)
[2019-07-24] MEDS: ALBUTEROL SULFATE 0.083% NEB 2.5 MG/3 ML AMPUL NEB SCH ×3 (02:10→13:35)
[2019-07-24] MEDS: ENOXAPARIN SODIUM INJ 40 MG/0.4 ML DISP.SYRIN SUBCUT SCH (09:29)
[2019-07-24] MEDS: FAMOTIDINE 20 MG TABLET PO SCH (09:29)
[2019-07-24] MEDS: NICOTINE 14 MG/24 HR PATCH.TD24 TD SCH (09:30)
[2019-07-24] MEDS: FLUTICASONE/VILANTEROL 200-25 MCG/DOSE IH SCH (09:31)
[2019-07-24] MEDS: DOCUSATE SODIUM 100 MG CAPSULE PO SCH (09:31)
[2019-07-24] MEDS: BUPROPION HCL 75 MG TABLET PO SCH (09:31)
[2019-07-24] MEDS: CLONAZEPAM 1 MG TABLET PO SCH (09:31)
[2019-07-24] MEDS ORDERED: PREDNISONE 20 MG TABLET PO SCH (10:00)
[2019-07-24 14:15] VITALS: BP 131/76
--- NOTE | 2019-07-27 18:04 | PDOC DISCHARGE SUMMARY ---
Impression - Admit/DC Date/PCP Admission Date/Primary Care Provider: 07/15/19 15:07 [facility] Discharge Date: 07/24/19 - Discharge Diagnosis (1) Status asthmaticus with COPD (chronic obstructive pulmonary disease) Is this a current diagnosis for this admission?: Yes (2) Acute hypoxemic respiratory failure Is this a current diagnosis for this admission?: Yes (3) Tobacco abuse disorder Is this a current diagnosis for this admission?: Yes (4) Obesity (BMI 30-39.9) Is this a current diagnosis for this admission?: Yes (5) Anxiety and depression Is this a current diagnosis for this admission?: Yes - Additional Information Resuscitation Status: Full Code Discharge Diet: Regular Discharge Activity: Activity As Tolerated, Balance Activity w/Rest, Slowly Increase Activity Referrals: [facility] [Primary Care Provider] - 07/30/19 3:00 pm (Appt. with Dr. Brooks) Prescriptions: Prednisone [Deltasone 20 mg Tablet] 60 mg PO DAILY #15 tablet Clonazepam [Klonopin 1 mg Tablet] 1 mg PO Q12 #60 tablet Guaifenesin [Mucinex Sr 600 mg Tablet.sa] 600 mg PO Q12 #24 tablet.sa Nicotine [Nicoderm 14 mg/24 Hr Transdermal Patch] 1 each TD DAILY #30 patch.td24 Albuterol Sulfate [Ventolin Hfa 8 gm Mdi] 2 puff IH Q6HP PRN #1 inhaler PRN Reason: Bupropion HCl [Wellbutrin 75 mg Tablet] 75 mg PO Q12 #60 tablet Home Medications: Ipratropium/Albuterol Sulfate [Duoneb 3 ml Ampul] 3 ml NEB RTQ4HP PRN 04/19/19 Albuterol Sulfate [Proventil Hfa] 2 puff IH Q4HP PRN 07/15/19 Famotidine [Pepcid 20 mg Tablet] 20 mg PO BID 07/15/19 Fluticasone Propion/Salmeterol [Advair HFA 230-21 mcg Inhaler] 2 puff IH Q12 07/15/19 Acetaminophen [Tylenol 325 mg Tablet] 650 mg PO Q4HP PRN tablet 07/24/19 Albuterol Sulfate [Ventolin Hfa 8 gm Mdi] 2 puff IH Q6HP PRN #1 inhaler 07/24/19 Bupropion HCl [Wellbutrin 75 mg Tablet] 75 mg PO Q12 #60 tablet 07/24/19 Clonazepam [Klonopin 1 mg Tablet] 1 mg PO Q12 #60 tablet 07/24/19 Docusate Sodium [Colace 100 mg Capsule] 100 mg PO DAILY capsule 07/24/19 Guaifenesin [Mucinex Sr 600 mg Tablet.sa] 600 mg PO Q12 #24 tablet.sa 07/24/19 Nicotine [Nicoderm 14 mg/24 Hr Transdermal Patch] 1 each TD DAILY #30 patch.td24 07/24/19 Prednisone [Deltasone 20 mg Tablet] 60 mg PO DAILY #15 tablet 07/24/19 History of Present Illiness History of Present Illness: Per H&P by Dr. Martin: RYAN PLASCENCIA is a 58 year old female Patient presents to the emergency room with complaint of difficulty breathing and shortness of breath accompanied by fever, body aches, and a dry nonproductive cough for about 2 days. She gives a history of a COPD and asthma. She continues to smoke. She denies any prior history of intubation. She was treated in the emergency room and attempts made to discharge her home however she remained bronchospastic and so she has been admitted for further evaluation and management There is no history of travel or exposure to any viral illness Hospital Course Hospital Course: (1) Status asthmaticus with COPD (chronic obstructive pulmonary disease) Resolved. Patient is now maintaining oxygen saturations while ambulatory on room air. Lung sounds are improved significantly and she reports that she is improved from her baseline respiratory status. Patient was admitted to the medical floor on continuous cardiac telemetry. She was provided supplemental oxygen and BiPAP, scheduled and as needed nebulizer treatments, steroid therapy, Mucinex, and aggressive pulmonary toilet. As her respiratory status improved, her steroids and nebulizer treatments were gradually weaned and her home dose Breo was resumed. She is now ambulatory on room air, asymptomatic, and stable for discharge home. (2) Acute hypoxemic respiratory failure Secondary to #1. Resolved (3) Tobacco abuse disorder Smoking cessation encouraged. Nicotine replacement therapies provided. (4) Obesity (BMI 30-39.9) Patient's BMI is 38.1. She would benefit from outpatient overnight sleep study to evaluate for JAYLA. She is encouraged to lose weight; lifestyle and dietary modifications are encouraged. (5) Anxiety and depression Continue Wellbutrin and Klonopin Physical Exam Vital Signs: Temp Pulse Resp BP Pulse Ox 98.2 F 84 16 131/76 H 93 07/24/19 14:13 07/24/19 14:13 07/24/19 14:13 07/24/19 14:13 07/24/19 14:13 General appearance: PRESENT: no acute distress, cooperative, obese, well- developed, well-nourished Head exam: PRESENT: atraumatic, normocephalic Eye exam: PRESENT: conjunctiva pink, EOMI, PERRLA. ABSENT: scleral icterus Mouth exam: PRESENT: moist, tongue midline Teeth exam: PRESENT: poor dentation Respiratory exam: PRESENT: clear to auscultation ligia, rhonchi - Occasional, symmetrical, unlabored, other - Ambulatory on room air. ABSENT: rales, wheezes Cardiovascular exam: PRESENT: RRR. ABSENT: diastolic murmur, rubs, systolic murmur Pulses: PRESENT: normal dorsalis pedis pul Vascular exam: PRESENT: normal capillary refill GI/Abdominal exam: PRESENT: normal bowel sounds, soft. ABSENT: distended, gu arding, mass, organolmegaly, rebound, tenderness Rectal exam: PRESENT: deferred Extremities exam: PRESENT: full ROM. ABSENT: calf tenderness, clubbing, pedal edema Musculoskeletal exam: PRESENT: ambulatory Neurological exam: PRESENT: alert, awake, oriented to person, oriented to place, oriented to time, oriented to situation, CN II-XII grossly intact. ABSENT: motor sensory deficit Psychiatric exam: PRESENT: appropriate affect, normal mood. ABSENT: homicidal ideation, suicidal ideation Skin exam: PRESENT: dry, intact, warm. ABSENT: cyanosis, rash Results Laboratory Results: WBC 5.5 10^3/uL (4.0-10.5) 07/20/19 05:16 RBC 4.28 10^6/uL (3.72-5.28) 07/20/19 05:16 Hgb 13.2 g/dL (12.0-15.5) 07/20/19 05:16 Hct 38.7 % (36.0-47.0) 07/20/19 05:16 MCV 90 fl (80-97) 07/20/19 05:16 MCH 30.8 pg (27.0-33.4) 07/20/19 05:16 MCHC 34.0 g/dL (32.0-36.0) 07/20/19 05:16 RDW 13.7 % (11.5-14.0) 07/20/19 05:16 Plt Count 168 10^3/uL (150-450) 07/20/19 05:16 Lymph % (Auto) 11.7 % (13-45) L 07/20/19 05:16 Grand % (Auto) 11.3 % (3-13) 07/20/19 05:16 Eos % (Auto) 0.1 % (0-6) 07/20/19 05:16 Baso % (Auto) 0.1 % (0-2) 07/20/19 05:16 Absolute Neuts (auto) 4.2 10^3/uL (1.7-8.2) 07/20/19 05:16 Absolute Lymphs (auto) 0.6 10^3/uL (0.5-4.7) 07/20/19 05:16 Absolute Monos (auto) 0.6 10^3/uL (0.1-1.4) 07/20/19 05:16 Absolute Eos (auto) 0.0 10^3/uL (0.0-0.6) 07/20/19 05:16 Absolute Basos (auto) 0.0 10^3/uL (0.0-0.2) 07/20/19 05:16 Seg Neutrophils % 76.8 % (42-78) 07/20/19 05:16 Carbonic Acid 1.62 mmol/L (1.05-1.35) H 07/16/19 16:05 HCO3/H2CO3 Ratio 18:1 07/16/19 16:05 ABG pH 7.36 (7.35-7.45) 07/16/19 16:05 ABG pCO2 53.9 mmHg (35-45) H 07/16/19 16:05 ABG pO2 43.7 mmHg (80-100) L 07/16/19 16:05 ABG HCO3 29.4 mmol/L (20-24) H 07/16/19 16:05 ABG Total CO2 31.1 mmol/L (21-25) H 07/16/19 16:05 ABG O2 Saturation 76.7 % (94-98) L 07/16/19 16:05 ABG Base Excess 2.7 mmol/L 07/16/19 16:05 VBG pH 7.40 (7.30-7.42) 07/15/19 15:36 VBG pCO2 43.8 mmHg (35-63) 07/15/19 15:36 VBG HCO3 26.6 mmol/L (20-32) 07/15/19 15:36 VBG Base Excess 1.5 mmol/L 07/15/19 15:36 FiO2 30% 07/16/19 16:05 Sodium 138.8 mmol/L (137-145) 07/20/19 05:16 Potassium 4.5 mmol/L (3.6-5.0) 07/20/19 05:16 Chloride 100 mmol/L (98-107) 07/20/19 05:16 Carbon Dioxide 34 mmol/L (22-30) H 07/20/19 05:16 Anion Gap 5 (5-19) 07/20/19 05:16 BUN 17 mg/dL (7-20) 07/20/19 05:16 Creatinine 0.73 mg/dL (0.52-1.25) 07/20/19 05:16 Est GFR ( Amer) > 60 (>60) 07/20/19 05:16 Est GFR (MDRD) Non-Af > 60 (>60) 07/20/19 05:16 Glucose 152 mg/dL (75-110) H 07/20/19 05:16 POC Glucose 186 mg/dL (70-110) H 07/15/19 17:42 Calcium 8.3 mg/dL (8.4-10.2) L 07/20/19 05:16 Total Bilirubin 0.3 mg/dL (0.2-1.3) 07/15/19 11:06 Direct Bilirubin 0.0 mg/dL (0.0-0.4) 07/15/19 11:06 Neonat Total Bilirubin Not Reportable 07/15/19 11:06 Neonat Direct Bilirubin Not Reportable 07/15/19 11:06 Neonat Indirect Bili Not Reportable 07/15/19 11:06 AST 21 U/L (14-36) 07/15/19 11:06 ALT 15 U/L (<35) 07/15/19 11:06 Alkaline Phosphatase 95 U/L (38-126) 07/15/19 11:06 Total Protein 6.7 g/dL (6.3-8.2) 07/15/19 11:06 Albumin 4.1 g/dL (3.5-5.0) 07/15/19 11:06 Influenza A (Rapid) NEGATIVE (NEGATIVE) 07/15/19 12:25 Influenza B (Rapid) NEGATIVE (NEGATIVE) 07/15/19 12:25 Impressions: Chest X-Ray 07/15/19 11:01 IMPRESSION: NO ACUTE RADIOGRAPHIC FINDING IN THE CHEST. Chest/Abdomen CTA 07/16/19 00:00 IMPRESSION: 1. No central or segmental pulmonary embolus. 2. Mild emphysema and bronchial wall thickening without a superimposed acute cardiopulmonary process. 2. Solid noncalcified nodules that measure up to 6 mm - consider a follow-up CT in 12 months. Plan Plan of Treatment: The patient was discharged to home in stable condition. She was advised to follow-up with her primary care provider within 1 week. Take your medication as prescribed. Eat a heart healthy diet. Do NOT smoke. Return to emergency department as needed for concerning symptoms. Time Spent: Greater than 30 Minutes Stroke Is this a Stroke Patient?: No Acute Heart Failure - Is this a Heart Failure Patient?: No
== END 2019-07-24 15:00 | disposition home or self-care (01) | DRG 190 ==
LOC: ER 10:53 → EH 15:07 → 3S 17:17
PROVIDERS: ADMIT Internal Medicine; ATTEND Registered Nurse
PROC: 5A09357 Assistance with Respiratory Ventilation, Less than 24 Consecutive Hours, Continuous Positive Airway Pressure (ICD-10-PCS; principal; 2019-07-15)
DX: J44.1 Chronic obstructive pulmonary disease with (acute) exacerbation (principal); J96.01 Acute respiratory failure with hypoxia; J45.902 Unspecified asthma with status asthmaticus; E66.9 Obesity, unspecified; F41.8 Other specified anxiety disorders; F17.210 Nicotine dependence, cigarettes, uncomplicated; Z71.6 Tobacco abuse counseling; Z79.52 Long term (current) use of systemic steroids; Z68.38 Body mass index [BMI] 38.0-38.9, adult; Z88.6 Allergy status to analgesic agent; Z88.3 Allergy status to other anti-infective agents; Z88.0 Allergy status to penicillin
CPT/HCPCS: 36415; 71046; 71275; 80048; 80053; 82803; 82962; 85025; 87040; 87804; 90686; 94640; 94660; 96365; 96372; 99285; J1650; J2920; J2930; J3475; J3490; J7512; J7620

== ENCOUNTER 2019-10-14 18:44 | Emergency (ER) | payer OTHER ==
--- NOTE | 2019-10-14 19:36 | RADIOLOGY REPORT (SQ) ---
EXAM DESCRIPTION: WRIST RIGHT 3 VIEWS IMAGES COMPLETED DATE/TIME: 10/14/2019 7:27 pm REASON FOR STUDY: woke up with pain/swelling COMPARISON: None. NUMBER OF VIEWS: Three views. TECHNIQUE: AP, lateral, and oblique radiographic images acquired of the right wrist. LIMITATIONS: None. FINDINGS: MINERALIZATION: Normal. BONES: No acute fracture or dislocation. No worrisome bone lesions. Normal alignment. SOFT TISSUES: No soft tissue swelling. No foreign body. OTHER: No other significant finding. IMPRESSION: NEGATIVE STUDY OF THE RIGHT WRIST. NO RADIOGRAPHIC EVIDENCE OF ACUTE INJURY. TECHNICAL DOCUMENTATION: JOB ID: [id number] [employer]- All Rights Reserved Reading location - IP/workstation name: [email or web address]
--- NOTE | 2019-10-14 19:37 | RADIOLOGY REPORT (SQ) ---
EXAM DESCRIPTION: FOREARM RIGHT IMAGES COMPLETED DATE/TIME: 10/14/2019 7:27 pm REASON FOR STUDY: woke up with pain/swelling COMPARISON: None. NUMBER OF VIEWS: Two views. TECHNIQUE: Two radiographic images acquired of the right forearm, including elbow and wrist in at le ast one projection. LIMITATIONS: None. FINDINGS: MINERALIZATION: Normal. BONES: No acute fracture. No worrisome bone lesions. SOFT TISSUES: No obvious swelling or foreign body. OTHER: No other significant finding. IMPRESSION: NEGATIVE STUDY OF THE RIGHT FOREARM. NO RADIOGRAPHIC EVIDENCE OF ACUTE INJURY. TECHNICAL DOCUMENTATION: JOB ID: [id number] 2010 [employer]- All Rights Reserved Reading location - IP/workstation name: [email or web address]
--- NOTE | 2019-10-14 19:37 | ER Document Report ---
ED Medical Screen (RME) - General Chief Complaint: Wrist Pain Stated Complaint: RIGHT WRIST PAIN,SWELLING Time Seen by Provider: 10/14/19 19:12 Primary [facility] Provider: [facility] [Primary Care Provider] - Follow up as needed TRAVEL OUTSIDE OF THE [place] IN LAST 30 DAYS: No - HPI Notes: 10/14/19 19:13 58-year-old female presents emergency room for complaints of right wrist and forearm pain and swelling that started when she woke up this morning. Denies any trauma, denies any falls. Denies any prior history of right arm forearm pain. Tried [id number] Tylenol and icing without relief. Pain is 3 out of 5, throbbing sharp and achy. Worse with movement, better at rest. She cannot recall anything that she did yesterday which would cause her right wrist or forearm to swell. Denies any new medications foods or travel. Denies any chest pain, shortness of breath, fevers or chills. No recent travel outside of the [facility], has not been around anybody diagnosed with covid or PUI PHYSICAL EXAMINATION: CV: Heart regular rate and rhythm LUNGS: No respiratory distress Musculoskeletal: Normal range of motion. Noted right wrist pain with flexion, extension, inversion, eversion of wrist. digits in right and left with full aprom.. 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 Snuffbox tenderness positive on right. radial pulses + 2 BUE equally. Negative kanavels sign. No open wounds or drainage from wrist. No vascular compromise.No body crepitus or focal area of TTP. Limited ROM with flexion, extension, ulnar/radial deviation. NEUROLOGICAL: Normal speech PSYCH: Normal mood, normal affect. MDM: Patient seen and examined for rapid initial assessment. Vital signs reviewed. A comprehensive ED assessment and evaluation of the patient, analysis of test results and completion of the medical decision making process will be conducted by additional ED providers. *Note is created using voice recognition software and may contain spelling, syntax or grammatical errors. - Related Data Allergies/Adverse Reactions: aspirin Allergy (Verified 07/15/19 11:15) erythromycin base [From Erythrocin] Allergy (Verified 07/15/19 11:15) Penicillins Allergy (Verified 07/15/19 11:15) Past Medical History Pulmonary Medical History: Reports: Hx Asthma, Hx COPD Renal/ Medical History: Denies: Hx Peritoneal Dialysis Past Surgical History: Reports: Hx Section, Hx Hysterectomy, Hx Orthopedic Surgery - Immunizations Immunizations up to date: Yes Physical Exam - Vital signs Vitals: Temp Pulse Resp BP Pulse Ox 98.6 F 96 22 H 145/94 H 95 10/14/19 19:03 10/14/19 19:03 10/14/19 19:03 10/14/19 19:03 10/14/19 19:03 Course - Vital Signs Vital signs: Temp Pulse Resp BP Pulse Ox 98.6 F 96 22 H 145/94 H 95 10/14/19 19:03 10/14/19 19:03 10/14/19 19:03 10/14/19 19:03 10/14/19 19:03 Doctor's Discharge - Discharge Referrals: [facility] [Primary Care Provider] - Follow up as needed
[2019-10-14] MEDS ORDERED: HYDROCODONE/ACETAMINOPHEN 5-325 MG (6 TAB/ER DISP) PO PRN (20:35)
--- NOTE | 2019-10-14 20:38 | ER Document Report ---
HPI - HPI Time Seen by Provider: 10/14/19 19:12 Pain Level: 4 Context: Patient is a 58-year-old female who presents emergency department with a chief complaint of right wrist pain. Patient states that her pain started this morning. Describes her pain as a sharp shooting pain that goes from her medial wrist to her right elbow. 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 Denies any trauma. - CONSTITUTIONAL Constitutional: DENIES: Fever, Chills - CARDIOVASCULAR Cardiovascular: DENIES: Chest pain - RESPIRATORY Respiratory: DENIES: Coughing - REPRODUCTIVE Reproductive: DENIES: : - MUSCULOSKELETAL Musculoskeletal: REPORTS: Extremity pain - right wrist, Swelling - right hand - DERM Skin Color: Normal Skin Problems: None Past Medical History - General Information source: Patient - Social History Smoking Status: Current Every Day Smoker Frequency of alcohol use: None Drug Abuse: None Family History: Reviewed & Not Pertinent Patient has homicidal ideation: No Pulmonary Medical History: Reports: Hx Asthma, Hx COPD Renal/ Medical History: Denies: Hx Peritoneal Dialysis Past Surgical History: Reports: Hx Section, Hx Hysterectomy, Hx Orthopedic Surgery - Immunizations Immunizations up to date: Yes Vertical Provider Document - CONSTITUTIONAL Agree With Documented VS: Yes Exam Limitations: No Limitations General Appearance: No Apparent Distress - INFECTION CONTROL TRAVEL OUTSIDE OF THE [place] IN LAST 30 DAYS: No - HEENT HEENT: Atraumatic - NECK Neck: Normal Inspection - RESPIRATORY Respiratory: No Respiratory Distress - CARDIOVASCULAR Cardiovascular: Regular Rate, Regular Rhythm Pulses: Normal: Radial - MUSCULOSKELETAL/EXTREMETIES Musculoskeletal/Extremeties: Tender - right medial wrist, Edema - slight edema to fingers. negative: FROM - decreased to right wrist - NEURO Level of Consciousness: Awake, Alert, Appropriate - DERM Integumentary: Warm, Dry, No Rash Course - Re-evaluation Re-evalutation: 10/14/19 X-rays are unremarkable. No acute fracture noted. Patient's physical exam and history is consistent with carpal tunnel syndrome. I have a low suspicion for a DVT. Capillary refill less than 3 seconds. Radial pulse 2+. No vascular compromise noted. Patient will be placed in a cock-up splint. We will give her a Stout dose pack to go home with. She will follow-up with orthopedics. She is in agreement with this plan. Follow-up precautions were given. Verbal discharge instructions were given to the patient. They verbalized understanding. They are stable for discharge. - Vital Signs Vital signs: Temp Pulse Resp BP Pulse Ox 98.6 F 96 22 H 145/94 H 95 10/14/19 20:00 10/14/19 19:03 10/14/19 19:03 10/14/19 19:03 10/14/19 19:03 Procedures - Immobilization Right Wrist Pre-Proc Neuro Vasc Exam: Normal Immobilizer type: Cock-up Discharge - Discharge Clinical Impression: Right wrist pain, Carpal tunnel syndrome of right wrist Condition: Stable Disposition: HOME, SELF-CARE Additional Instructions: You were seen today in the emergency department for right wrist pain. Your symptoms are consistent with carpal tunnel syndrome. Please follow-up with orthopedics regards to this visit. You can take ibuprofen 600 mg and Tylenol 650 mg every 6 hours as needed for pain and swelling. Take the Stout for extreme pain to help sleep at night. Wear the splint to help immobilize your hand. Referrals: [facility] [Primary Care Provider] - Follow up as needed JOSH MARIE MD [ACTIVE PROVISIONAL STAFF] - Follow up in 1 week
[2019-10-14 20:52] VITALS: BP 159/94
== END 2019-10-14 21:06 | disposition home or self-care (01) ==
LOC: ER 18:44
DX: G56.01 Carpal tunnel syndrome, right upper limb (principal); M25.531 Pain in right wrist; R60.0 Localized edema; F17.200 Nicotine dependence, unspecified, uncomplicated; J44.9 Chronic obstructive pulmonary disease, unspecified
CPT/HCPCS: 99283